=== PATIENT | male | born 1950 | race Caucasian/White ===

== ENCOUNTER → 2017-09-20 | Outpatient (CLI) | payer OTHER ==
[~2017-09-20] MED LIST: ACYCLOVIR 400400 MG PO; AMBIEN 10 MG TA10 MG PO; AMITRIPTYLINE H10 M3; AMITRIPTYLINE H25 M2 PO; AMITRIPTYLINE H50 M2 PO; AMLODIPINE-ATO1 EAC4 PO; ANAPROX PO; ATIVAN1 MG PO; B-121000 MCG PO; B12INJ IM; B12INJ SUBQ; BETADINE1 EACH TOP; CARAFATE 1 GM TA1 G1 PO; CARAFATE1 GM/10 ML PO; CARVEDILOL6.25 MG PO; CATAPRES0.1 MG PO; CEFAZOLIN; CELEXA 20 MG TA20 MG PO; CIPRO500 MG PO; CIPROFLOXACIN500 M3 PO; CLONIDINE0.1 PO; COSAMIN DS CAP1 EACH PO; DAILY MULTIPLE1 EAC2 PO; DAPTOMYCIN IV; ENDOCET 10-3251 EACH PO; FAMOTIDINE20 MG PO; FENOFIBRATE48 MG PO; FERRO-TIME325 MG PO; FLOMAX PO; GABAPENTIN100 MG PO; GLUCOPHAGE XR500 MG PO; GLUCOPHAGE500 MG PO; GLUCOSAMINE &1 EACH PO; HYDROCODON-ACE1 EAC7 PO; HYDROCODONE-AP1 EAC2 PO; HYDROXYZINE HCL25 M1 PO; IRON IV; IRON PO; IRON325 PO; LISINOPRIL-HCT1 EAC2 PO; LORAZEPAM 0.50.5 MG PO; LORTAB 7.5/5001 TA3 PO; MACROBID 100 M100 M1 PO; MELATONIN3 MG PO; METANX CAPSULE1 EACH PO; METANX TABLET1 EAC1 PO; METHADONE HCL5 MG PO; MIRALAX RECTAL; MIRALAX17 GM PO; MS CONTIN15 MG PO; MULTIVITAMINS PO; NAPROSYN500 MG; NAPROSYN500 MG PO; NEURONTIN 300300 M1 PO; NIASPAN 500 MG500 M1 PO; NORVASC10 MG PO; ONDANSETRON HCL4 M2 PO; OXYCODONE HCL15 MG PO; PANTOPRAZOLE SO40 MG PO; PERCOCET 10-321 EACH; PERCOCET 5-3251 EACH PO; POVIDINE 10% OI28 G1 TOP; PREDNISONE 20 M20 MG PO; PROBIOTIC1 EAC1 PO; PROTONIX40 M1 PO; RELAX & SLEEP1 EACH PO; REQUIP XL2 MG PO; RIFAMPIN 300 M300 M1 PO; ROCEPHIN 11 GM/1001 IV; SIMETHICON CHEW80 M1 PO; TAMSULOSIN HCL0.4 M1; TAMSULOSIN HCL0.4 MG PO; TRAZODONE HCL100 MG PO; TRAZODONE HCL50 MG PO; VENOFER100 MG/52 IV; VITAMIN B 12; XANAX 0.5 MG0.5 MG PO; [UNRECOGNIZED DRUG - OTHER]; [UNRECOGNIZED DRUG - OTHER] PO; [UNRECOGNIZED DRUG - OTHER] PO; tramadol
== END ==
LOC: M.WC 06:27
DX: E11.621 Type 2 diabetes mellitus with foot ulcer (principal); L97.521 Non-pressure chronic ulcer of other part of left foot limited to breakdown of skin; E11.40 Type 2 diabetes mellitus with diabetic neuropathy, unspecified; E78.5 Hyperlipidemia, unspecified; I10 Essential (primary) hypertension; M19.90 Unspecified osteoarthritis, unspecified site; G89.29 Other chronic pain; Z89.412 Acquired absence of left great toe

== ENCOUNTER → 2017-09-27 | Outpatient (CLI) | payer OTHER | LOC: M.WC 01:07 | DX: E11.621 Type 2 diabetes mellitus with foot ulcer (principal); L97.521 Non-pressure chronic ulcer of other part of left foot limited to breakdown of skin; T25.291A Burn of second degree of multiple sites of right ankle and foot, initial encounter; T31.0 Burns involving less than 10% of body surface; G89.29 Other chronic pain; E78.5 Hyperlipidemia, unspecified; I10 Essential (primary) hypertension; E11.40 Type 2 diabetes mellitus with diabetic neuropathy, unspecified; E11.69 Type 2 diabetes mellitus with other specified complication; M86.9 Osteomyelitis, unspecified; X08.8XXA Exposure to other specified smoke, fire and flames, initial encounter; Y92.89 Other specified places as the place of occurrence of the external cause; Y99.8 Other external cause status; Y93.89 Activity, other specified ==

== ENCOUNTER → 2017-10-04 | Outpatient (CLI) | payer OTHER | LOC: M.WC 00:51 | DX: E11.621 Type 2 diabetes mellitus with foot ulcer (principal); L97.521 Non-pressure chronic ulcer of other part of left foot limited to breakdown of skin; E11.622 Type 2 diabetes mellitus with other skin ulcer; L97.811 Non-pressure chronic ulcer of other part of right lower leg limited to breakdown of skin; E11.69 Type 2 diabetes mellitus with other specified complication; M86.8X7 Other osteomyelitis, ankle and foot; E11.40 Type 2 diabetes mellitus with diabetic neuropathy, unspecified; I10 Essential (primary) hypertension; E78.5 Hyperlipidemia, unspecified; G89.29 Other chronic pain; M19.90 Unspecified osteoarthritis, unspecified site; Z89.412 Acquired absence of left great toe; Z89.422 Acquired absence of other left toe(s) ==

== ENCOUNTER → 2017-10-11 | Outpatient (CLI) | payer OTHER | LOC: M.WC 00:08 | DX: E11.621 Type 2 diabetes mellitus with foot ulcer (principal); L97.521 Non-pressure chronic ulcer of other part of left foot limited to breakdown of skin; T25.291D Burn of second degree of multiple sites of right ankle and foot, subsequent encounter; G89.29 Other chronic pain; E11.69 Type 2 diabetes mellitus with other specified complication; M86.8X7 Other osteomyelitis, ankle and foot; M19.90 Unspecified osteoarthritis, unspecified site; E78.5 Hyperlipidemia, unspecified; I10 Essential (primary) hypertension; E11.40 Type 2 diabetes mellitus with diabetic neuropathy, unspecified; Z89.412 Acquired absence of left great toe; X08.8XXD Exposure to other specified smoke, fire and flames, subsequent encounter ==

== ENCOUNTER → 2017-10-18 | Outpatient (CLI) | payer OTHER | LOC: M.WC 00:53 | DX: E11.621 Type 2 diabetes mellitus with foot ulcer (principal); L97.511 Non-pressure chronic ulcer of other part of right foot limited to breakdown of skin; L97.521 Non-pressure chronic ulcer of other part of left foot limited to breakdown of skin; L89.892 Pressure ulcer of other site, stage 2; E11.69 Type 2 diabetes mellitus with other specified complication; M86.8X7 Other osteomyelitis, ankle and foot; E11.40 Type 2 diabetes mellitus with diabetic neuropathy, unspecified; L84 Corns and callosities; I10 Essential (primary) hypertension; M19.90 Unspecified osteoarthritis, unspecified site; M89.48 Other hypertrophic osteoarthropathy, other site; G89.29 Other chronic pain; M79.671 Pain in right foot; E78.5 Hyperlipidemia, unspecified; Z89.412 Acquired absence of left great toe ==

== ENCOUNTER → 2017-10-25 | Outpatient (CLI) | payer OTHER | LOC: M.WC 01:05 | DX: E11.621 Type 2 diabetes mellitus with foot ulcer (principal); L97.521 Non-pressure chronic ulcer of other part of left foot limited to breakdown of skin; G89.29 Other chronic pain; E11.69 Type 2 diabetes mellitus with other specified complication; M86.8X7 Other osteomyelitis, ankle and foot; M19.90 Unspecified osteoarthritis, unspecified site; E78.5 Hyperlipidemia, unspecified; I10 Essential (primary) hypertension; E11.40 Type 2 diabetes mellitus with diabetic neuropathy, unspecified; Z89.412 Acquired absence of left great toe ==

== ENCOUNTER → 2017-11-01 | Outpatient (CLI) | payer OTHER | LOC: M.WC 00:11 | DX: E11.621 Type 2 diabetes mellitus with foot ulcer (principal); L97.521 Non-pressure chronic ulcer of other part of left foot limited to breakdown of skin; T25.211D Burn of second degree of right ankle, subsequent encounter; T31.0 Burns involving less than 10% of body surface; E11.69 Type 2 diabetes mellitus with other specified complication; M86.8X7 Other osteomyelitis, ankle and foot; E11.40 Type 2 diabetes mellitus with diabetic neuropathy, unspecified; E78.5 Hyperlipidemia, unspecified; I10 Essential (primary) hypertension; G89.29 Other chronic pain; M19.90 Unspecified osteoarthritis, unspecified site; M89.40 Other hypertrophic osteoarthropathy, unspecified site; Z89.412 Acquired absence of left great toe; X08.8XXD Exposure to other specified smoke, fire and flames, subsequent encounter ==

== ENCOUNTER 2018-01-25 08:24 | Inpatient (IN) | payer OTHER ==
[~2018-01-25] VITALS: Ht 172.7 cm; Wt 76.2 kg
[~2018-01-25 08:24] MED LIST changes: -B12INJ SUBQ; -BETADINE1 EACH TOP; -CARAFATE1 GM/10 ML PO; -FENOFIBRATE48 MG PO; -MELATONIN3 MG PO; -MIRALAX17 GM PO; -PROBIOTIC1 EAC1 PO; -PROTONIX40 M1 PO
[2018-01-25] MEDS ORDERED: PROBIOTIC1 EAC1 PO (10:04)
[2018-01-25] MEDS ORDERED: MELATONIN3 MG PO (10:05)
[2018-01-25] MEDS ORDERED: PROTONIX40 M1 PO (10:06)
[2018-01-25] MEDS ORDERED: BETADINE1 EACH TOP (10:07)
[2018-01-25] MEDS ORDERED: CARAFATE1 GM/10 ML PO (10:08)
[2018-01-25] MEDS ORDERED: FENOFIBRATE48 MG PO (10:11)
[2018-01-25] MEDS ORDERED: B12INJ SUBQ (10:13)
[2018-01-25] MEDS ORDERED: MIRALAX17 GM PO (10:17)
[2018-01-25 10:20] VITALS: BP 163/88
[2018-01-25 12:09] LABS: POTASSIUM 4.5 mmol/L (3.5-5.1)
[2018-01-25 12:10] LABS: ALBUMIN 1.7 g/dL (3.4-5.0); CALCIUM 8.3 mg/dL (8.5-10.1); CREATININE 1.1 mg/dL (0.6-1.3); TOTAL BILIRUBIN 0.3 mg/dL (<0.1-1.0); TOTAL PROTEIN 5.4 g/dL (6.4-8.2)
--- NOTE | 2018-01-25 14:45 | NUR ---
CONSULTED TO PLACE PICC FOR PT NEEDING WEB APPLICATIONS ARCHITECT ATB THERAPY. ORDER AND CONSENT NOTED. SPOKE WITH PT REGUARDING RISK/BENNIFET. VOICED UNDERSTANDING AND AGREED. BOTH UPPER ARMS ASSESSED WITH ULTRASOUND. LEFT BASILIC NOTED TO BE MOST PATENT. SINGLE LUMAN POWER PICC PLACED PER HOSPITAL POLICY. LINE TRIM AT 47CM AND ADVANCED TO 0CM EXTERNAL. TIP CONFIRMATION WITH SHERLOCK 3CG. LINE SECURED AND RELEASED FOR IMMEDIATE USE. PRIMARY NURSING AWARE.
[2018-01-25 16:00] VITALS: BP 181/98
[2018-01-25 16:56] LABS: ABSOLUTE EOSINOPHILS 0.3 thou/uL (0.0-0.7); ABSOLUTE LYMPHOCYTES 1.7 thou/uL (0.8-5.3); ABSOLUTE MONOCYTES 0.6 thou/uL (0.0-1.2); ABSOLUTE NEUTROPHILS 3.6 thou/uL (1.6-8.1); BASOPHILS 0.7 %; EOSINOPHILS 4.2 %; HEMATOCRIT 24.9 % (42.0-52.0); HEMOGLOBIN 7.9 gm/dL (14.0-18.0); LYMPHOCYTES 26.9 %; MCH 23.9 pg (26.0-34.0); MCHC 31.9 g/dL (28.0-37.0); MCV 74.9 fL (80.0-100.0); MONOCYTES 10.1 %; MPV 6.8 fl. (7.2-11.1); NUCLEATED RBCS 0 /100WBC; PLATELET COUNT* 292 thou/uL (150-400); POLYS 58.1 %; RBC 3.32 mil/uL (4.50-6.00); RDW-CV 16.7 % (10.5-14.5); WBC 6.3 thou/uL (4.0-11.0)
--- NOTE | 2018-01-25 17:34 | NUR ---
PATIENT ARRIVED THIS A DIRECT ADMIT FROM WOUND CARE CENTER. HISTORY, ASSESSMENT AND VITALS COMPLETED AND DOCUMENTED. PATIENT IS CURRENTLY RESTING IN BED. PATIENT IS UP STANDBY ASSIST. PATIENT HAS COMPLAINTS OF PAIN TO HANDS, TREATED ADEQUATELY WITH MEDICATION. PATIENT HAS WOUNDS TO BILATERAL FEET. PATIENT HAD PICC LINE PLACED AT BEDSIDE THIS AFTERNOON WITHOUT INCIDENT. PATIENT DENIES ANY NEEDS AT THIS TIME. CALL LIGHT WITHIN REACH. WILL CONTINUE TO MONITOR.
[2018-01-25 20:15] VITALS: BP 171/94
[2018-01-26 00:23] VITALS: BP 157/83
[2018-01-26 04:22] LABS: ABSOLUTE EOSINOPHILS 0.3 thou/uL (0.0-0.7); ABSOLUTE MONOCYTES 0.7 thou/uL (0.0-1.2); ABSOLUTE NEUTROPHILS 2.7 thou/uL (1.6-8.1); BASOPHILS 0.5 %; EOSINOPHILS 5.5 %; HEMATOCRIT 25.4 % (42.0-52.0); LYMPHOCYTES 35.1 %; MCH 23.9 pg (26.0-34.0); MCHC 31.7 g/dL (28.0-37.0); MCV 75.7 fL (80.0-100.0); MONOCYTES 11.4 %; MPV 7.1 fl. (7.2-11.1); NUCLEATED RBCS 0 /100WBC; PLATELET COUNT* 298 thou/uL (150-400); POLYS 47.5 %; RBC 3.36 mil/uL (4.50-6.00); WBC 5.8 thou/uL (4.0-11.0)
[2018-01-26 04:27] LABS: CALCIUM 7.9 mg/dL (8.5-10.1); CREATININE 1.1 mg/dL (0.6-1.3); POTASSIUM 4.2 mmol/L (3.5-5.1)
--- NOTE | 2018-01-26 05:45 | NUR ---
PT SLEPT ON AND OFF THIS SHIFT. ASSESSMENT DOCUMENTED. MEDS GIVEN PER E-MAR. PICC PATENT. PAIN MEDS GIVEN PER PATIENT REQUEST. WILL CONTINUE WITH PLAN OF CARE.
[2018-01-26 08:50] VITALS: BP 177/94
--- NOTE | 2018-01-26 11:03 | NUR ---
INITIAL ASSESSMENT: Pt evaluated for d/c planning needs. Reviewed chart and spoke with nurse and pt. Pt is alert and oriented. Pt lives at home with and was independent with ADl's prior to admission. Pt states he does not use any DME. Pt has had [facility] in the past. Pt plans on returning home on d/c from hospital. Will remain available to assist as needed.
--- NOTE | 2018-01-26 12:04 | CON ---
[facility] [address] [place] [address] CONSULTATION Name: PASCUAL REED Room: [address] ADM IN M.R.#: [id number] Admission: 01/25/18 Attend Phys: Philip Guillory MD Discharge: Date of : 50 Report #: [id number] THIS REPORT FOR: //name// CC: Philip Bernstein DATE OF SERVICE: 01/25/2018 ATTENDING PHYSICIAN: Philip Guillory M.D. REASON FOR EVALUATION: Right great toe inflammatory eruption, likely a component of skin and soft tissue infection, can entirely exclude deeper infection such as osteomyelitis. HISTORY OF PRESENT ILLNESS: Chart reviewed, patient examined. This is a 67-year-old well known to myself, although I am seeing him for a number of years. There was some concern about diabetes; however, apparently more recent history indicates it is not felt to be the case. He was recently hospitalized with pancreatitis. He has ongoing issues with peripheral neuropathy, has previous toe amputations, had chronic ulceration involving the distal plantar aspect of the second toe as well as more recent breakdown with ulceration involving the plantar aspect overlying the first metatarsophalangeal joint, right side. Over the course of last 12-24 hours, had increasing inflammation associated with the site. With increasing temperature, it is not clear he has had systemic illness. Denies any fevers or chills. Due to concerns was evaluated by wound care center with Dr. aHrry who recommended admission did undergo imaging studies. The feet noted the prior left first digit amputation and second phalanx amputation, old fracture deformity on the left, soft tissue swelling on the right, although no osseous changes to raise a suspicion for osteomyelitis. Denies any significant pulmonary or gastrointestinal complaints. He is not encephalopathic. ALLERGIES: Unknown and are available in the chart. PAST MEDICAL HISTORY: As noted above, history of Crohn's disease from previous intestinal resection, appendectomy, cholecystectomy, hypertension, recent pancreatitis, peripheral neuropathy. SOCIAL HISTORY: Nonsmoker, no ethanol. FAMILY HISTORY: Noncontributory. REVIEW OF SYSTEMS: As above. PHYSICAL EXAMINATION: [place] [address] CONSULTATION Name: PASCUAL REED Room: [address] IN [facility]#: [id number] Admission: 01/25/18 Attend Phys: Philip Guillory MD Discharge: Date of : 50 Report #: [id number] GENERAL: He is alert, cooperative, appropriate. He has certainly lost weight since previous interaction, appears mildly undernourished. VITAL SIGNS: Temperature 98.4, pulse 113, respirations 18, blood pressure 163/88. SKIN: Warm, dry, no rashes. HEENT: Unremarkable. NECK: Supple. LUNGS: Otherwise, clear breath sounds. HEART: Regular, tachycardic. I do not appreciate a murmur. ABDOMEN: Soft. There is no apparent tenderness, no peritoneal signs. EXTREMITIES: Bilateral feet were evaluated. He has previous amputations on the left. There is some ulceration of the distal third toe plantar aspect, some mild degree of inflammation right side. There is moderate to marked inflammation noted, it extends on the dorsum of the foot. There is a plantar ulcer that is warm to touch, erythrodermic type eruption. GENITOURINARY: Deferred. RECTAL: Deferred. LABORATORY DATA: Pending. ASSESSMENT AND PLAN: Inflammatory process involving the right great toe empiric treatment. I think it is reasonable to go ahead and start vancomycin presuming he had staph or strep etiology at this point. Evaluation in progress whether he will need any sort of intervention, it is not clear at this point. We will follow expectantly. Did discuss with the patient's spouse. <ELECTRONICALLY SIGNED> By: Luis Meier MD 01/26/18 1204 1204 [id number] Meier MD /nt
--- NOTE | 2018-01-26 14:28 | NUR ---
Nutrition: Pt was seen for Consult for wound healing. Pt denied DM. H/o SIRS, cellulitis, recent pancreatitis. Pt stated he does take a MVI. He was eating good lunch at time of visit. Alb 1.7, prealb 12.3, BG ok. Pt agreed to try Luis A Lucas for wound healing - RD ordered. We briefly discussed importance of focusing on protein during meal times. Pt has a PICC. Wounds on bilat feet. Wt 168#. Increased nutrient needs R/T wound healing AEB wounds on bilat feet. Continue MVI, Luis A orange b.i.d., >75% of meals consumed. Mild risk.
--- NOTE | 2018-01-26 15:45 | NUR ---
WOUND NURSE: PATIENT SEEN TODAY FOR WOUND ASSESSMENT AND INTERVENTION WHICH WAS DONE. RIGHT FIRST METATARSAL: 2.0 X 1.7 X 0.7 CM. PRESENTS WITH EARLY RED GRANULATION TISSUE IN THE WOUND BED, MODERATE AMOUNT OF SEROUSANGUINOUS DRAINAGE, PERIWOUND REDNESS AND WARMTH IS APPARENT. DECREASED PERIPHERAL EDEMA COMPARED TO YESTERDAY WHEN SEEN IN THE WOUND CENTER, RIGHT GREAT TOE DORSAL ASPECT: 0.6 X 0.7 X 0.1 CM. PRESENTS A SHALLOW LESION CONTAINING A SMALL AMOUNT OF SEROUSANGUINOUS DRAIANGE, THIN YELLOW CRUSTS ALONG THE EDGES, THIN LAYER OF PINK TO RED GRANULATION TISSUE. THERE IS SLIGHT PERIWOUND REDNESS. LEFT FOURTH TOE: 0.4 X 0.7 X 0.3 CM PRESENTS WITH APPROX 25% SLOUGH, 75% GRANULATION TISSUE IN THE WOUND BED. SMALL SEROUSANGUINOUS DRAINAGE. SIGNIFICANT PERIWOUND REDNESS AND SWELLING. LEFT FIFTH METATARSAL: 0.3 X 0.4 X 0.2 CM. PRESENTS WITH THIN LAYER OF YELLOW SLOUGH COVERING THE WOUND BED. SMALL AMOUNT OF SEROUS DRAINAGE NOTED. SLIGHT PERIWOUND REDNESS NOTED. ALL WOUNDS CLEANSED WITH SOAP AND WATER, RINSED WITH WATER, THEN PATTED DRY. APPLIED AQUACEL AG UNDER ABD (CUT TO FIT) TO EACH WOUND BED, THEN WRAPPED WITH KERLEX ROLL GAUZE AND SECURED WITH TAPE. THIS WAS TOLERATED WELL BY THE PATIENT. INSTRUCTED ON MEASURES TO PROMOTE HEALING AND PREVENT FURTHER COMPLICATION WITH GOOD UNDERSTANDING VOICED BY THE PATIENT.
[2018-01-26 16:00] VITALS: BP 152/85
--- NOTE | 2018-01-26 18:54 | NUR ---
PATIENT RESTING IN BED. PATIENT UP AD SO IN ROOM. PATIENT HAS COMPLAINTS OF PAIN TO HANDS AND BACK TREATED ADEQUATELY WITH MEDICATION. PATIENT DENIES ANY PAIN TO FEET. PATIENT SEEN BY WOUND CARE NURSE THIS AM FOR DRESSING CHANGE TO FEET. PATIENT HAS GOOD APPETITE. PATIENT DENIES ANY NEEDS AT THIS TIME. CALL LIGHT WITHIN REACH. WILL CONTINUE TO MONITOR.
[2018-01-26 20:00] VITALS: BP 166/80
--- NOTE | 2018-01-27 05:33 | NUR ---
PT SLEPT MOST OF SHIFT. ASSESSMENT DOCUMENTED. MEDS GIVEN PER E-MAR. PAIN MEDS GIVEN PER PATIENT REQUEST FOR HAND PAIN. PICC PATENT. DRESSING ON BILAT FEET C/D/I. WILL CONTINUE WITH PLAN OF CARE.
[2018-01-27 09:35] VITALS: BP 176/92
--- NOTE | 2018-01-27 15:52 | NUR ---
WOUND NURSE: PATIENT HAD MANAGED TO PARTIALLY TEAR OFF HIS DRESSING ON THE RIGHT FOOT, SO REMOVED AND REAPPLIED DRESSING TO BILATERAL FOOT WOUNDS. CLEANSED WITH SOAP AND WATER, RINSED WITH WATER, THEN PATTED DRY. APPLIED SKIN PREP TO INTACT PERIWOUND TISSUE, THEN APPLIED AQUACEL AG UNDER ABD (CUT TO FIT) TO EACH WOUND. WRAPPED WITH KERLEX ROLL GAUZE, THEN SECURED WITH PAPER TAPE. NO CHANGE IDENTIFIED IN WOUNDS COMPARED TO YESTERDAY. PAIENT REINSTRUCTED ON MEASURES TO PROMOTE HEALING AND PREVENT FUTHER BREAKDOWN. PATIENT STATED HE UNDERSTOOD.
[2018-01-27 16:10] VITALS: BP 161/86
--- NOTE | 2018-01-27 17:36 | NUR ---
PATIENT IS ALERT AND ORIENTED TODAY. VITAL SIGNS STABLE ON ROOM AIR. SOME COMPLAINTS OF PAIN THAT IS CONTROLLED WITH ORAL PAIN MEDICATIONS. DRESSING CHANGED TODAY BY WOUND NURSE DUE TO BEING SATURATED THIS AFTERNOON. UP AD SO IN ROOM. FAMILY HAS BEEN AT BEDSIDE TODAY. PICC LINE FLUSHES WELL AND ANTIBIOTICS RUN FINE UNABLE TO DRAW BLOOD FROM LINE THOUGH. CALL LIGHT IS IN REACH, WILL CONTINUE TO MONITOR.
[2018-01-28] VITALS (7 sets, daily range): BP systolic 145–183; BP diastolic 67–100
[2018-01-28 04:56] LABS: ABSOLUTE EOSINOPHILS 0.2 thou/uL (0.0-0.7); ABSOLUTE LYMPHOCYTES 1.7 thou/uL (0.8-5.3); ABSOLUTE MONOCYTES 0.6 thou/uL (0.0-1.2); BASOPHILS 0.5 %; EOSINOPHILS 4.3 %; HEMATOCRIT 25.5 % (42.0-52.0); HEMOGLOBIN 8.3 gm/dL (14.0-18.0); MCH 24.4 pg (26.0-34.0); MCHC 32.4 g/dL (28.0-37.0); MCV 75.3 fL (80.0-100.0); MONOCYTES 10.7 %; MPV 7.3 fl. (7.2-11.1); NUCLEATED RBCS 0 /100WBC; PLATELET COUNT* 276 thou/uL (150-400); POLYS 53.5 %; RBC 3.39 mil/uL (4.50-6.00); RDW-CV 16.6 % (10.5-14.5); WBC 5.6 thou/uL (4.0-11.0)
[2018-01-28 05:26] LABS: ALBUMIN 1.3 g/dL (3.4-5.0); CALCIUM 7.8 mg/dL (8.5-10.1); CREATININE 1.2 mg/dL (0.6-1.3); POTASSIUM 3.8 mmol/L (3.5-5.1); TOTAL BILIRUBIN 0.2 mg/dL (<0.1-1.0); TOTAL PROTEIN 4.8 g/dL (6.4-8.2)
--- NOTE | 2018-01-28 05:48 | NUR ---
PATIENT SLEPT WELL DURING THIS SHIFT. PT UP TO BATHROOM WITH SLOW STEADY GAIT. PT WITH DRESSINGS ON RT/LT FEET. DSGS' C/D/I AT THIS TIME. PT HAS MINIMAL SWELLING OF BOTH FEET. PT GIVEN OXY IR 15MG AND MS CONTIN 15MG ORDERED. PT WITH SINGLE LUMAN PICC IN UPPER LT ARM; ABLE TO DRAW/FLUSH WITH NO RESISTANCE. PT DENIES NEEDS AT THIS TIME. FREQUENTLY USED ITEMS AND CALL LIGHT WITHIN REACH. SIDERAILS UPX2. WILL CONTINUE TO MONITOR.
--- NOTE | 2018-01-28 17:29 | NUR ---
PATIENT HAS BEEN ALERT AND ORIENTED TODAY VERY PLEASANT. UP AD SO IN ROOM. PATIENT HAS BEEN HYPERTENSIVE SO NEW MEDICATIONS ORDERED AND GIVEN. DRESSING ON FEET CHANGED TODAY. COMPLAINTS OF PAIN IN HANDS TODAY THAT IS SOMEWHAT CONTROLLED WITH ORAL PAIN MEDCATIONS. PICC IN LEFT UPPER ARM WORKS WELL FOR INFUSION. CALL LIGHT IS IN REACH WILL CONTINUE TO MONITOR.
[2018-01-29 05:11] LABS: ABSOLUTE EOSINOPHILS 0.2 thou/uL (0.0-0.7); ABSOLUTE LYMPHOCYTES 1.3 thou/uL (0.8-5.3); ABSOLUTE MONOCYTES 0.5 thou/uL (0.0-1.2); BASOPHILS 0.5 %; EOSINOPHILS 3.9 %; HEMOGLOBIN 7.6 gm/dL (14.0-18.0); LYMPHOCYTES 25.9 %; MCH 23.9 pg (26.0-34.0); MCHC 31.8 g/dL (28.0-37.0); MCV 75.1 fL (80.0-100.0); MONOCYTES 10.7 %; MPV 7.2 fl. (7.2-11.1); NUCLEATED RBCS 0 /100WBC; PLATELET COUNT* 288 thou/uL (150-400); WBC 5.1 thou/uL (4.0-11.0)
--- NOTE | 2018-01-29 05:11 | NUR ---
PATIENT SLEPT MOST OF THE NIGHT. IV VANC WAS GIVEN ORDERED. DRESSING TO BILATERAL FEET REMAIN INTACT. PATIENT WAS GIVEN PRN PAIN MEDICINE TWICE. WILL CONTINUE TO MONITOR.
[2018-01-29 05:32] LABS: ALBUMIN 1.2 g/dL (3.4-5.0); CALCIUM 7.8 mg/dL (8.5-10.1); CREATININE 1.3 mg/dL (0.6-1.3); POTASSIUM 3.9 mmol/L (3.5-5.1); TOTAL BILIRUBIN 0.2 mg/dL (<0.1-1.0); TOTAL PROTEIN 4.6 g/dL (6.4-8.2)
[2018-01-29 05:47] LABS: PREALBUMIN 13.2 mg/dL (18.0-35.7)
[2018-01-29 08:15] VITALS: BP 160/98
[2018-01-29 16:06] VITALS: BP 160/94
--- NOTE | 2018-01-29 18:22 | NUR ---
PATIENT HAS BEEN ALERT AND ORIENTED TODAY VERY PLEASANT. VITAL SIGNS STABLE ON ROOM AIR, BLOOD PRESSURE ELEVATED, MEDICATIONS ADJUSTED BY PROVIDER. PICC LINE IN LEFT UPPER ARM WORKS WELL. SOME PAIN TODAY THAT IS CONTROLLED SOMEWHAT WITH ORAL PAIN MEDICATIONS, PAIN IS CHRONIC. FAMILY HAS BEEN AT BEDSIDE MOST OF THE DAY, APPETITE HAS BEEN GOOD TODAY. CALL LIGHT IS IN REACH, WILL CONTINUE TO MONITOR.
[2018-01-29 20:30] VITALS: BP 152/76
--- NOTE | 2018-01-30 06:04 | NUR ---
PATIENT SLEPT MOST OF THE NIGHT. PATIENT WAS GIVEN PAIN MEDICINE TWICE THIS SHIFT. IV VANC WAS GIVEN ORDERED. DRESSINGS TO BLIATERAL FETT REAMIN IN PLACE. WILL CONTINUE TO MONITOR.
[2018-01-30 08:15] VITALS: BP 168/80
[2018-01-30 16:20] VITALS: BP 161/88
--- NOTE | 2018-01-30 17:19 | NUR ---
PATIENT ALERT AND ORIENTED X 4. VITAL SIGNS STABLE ON ROOM AIR. UP INDEPENDENTLY IN ROOM. IV PATENT AND SALINE LOCKED. VANCOMYCIN GIVEN PER JUN. PAIN BEING MANAGED WITH PO MEDICATION. DENIES NAUSEA. DRESSINGS TO BILATERAL FOOT WOUNDS ARE CLEAN/DRY/INTACT. HOURLY ROUNDS MAINTAINED THROUGHOUT THE SHIFT. CALL LIGHT WITHIN REACH. NURSING WILL CONTINUE TO MONITOR.
[2018-01-30 20:30] VITALS: BP 168/91
--- NOTE | 2018-01-31 06:14 | NUR ---
PATIENTS SLEPT MOST OF THE NIGHT. IV VANC WAS GIVEN ORDERED. PATIENT REFUSING TO TAKE PO MINOCYCLINE STATING IT IS MAKING HIS STOMACH UPSET AND VERY NAUSEATED. 21OO DOSE WAS HELD AND ZOFRAN WAS GIVEN WITH GOOD RELIEF. PATIENT IS POSSIBLY GOING HOME TODAY. WILL CONTINUE TO MONITOR.
[2018-01-31 08:31] VITALS: BP 167/94
[2018-01-31 12:00] VITALS: BP 122/80
--- NOTE | 2018-01-31 17:59 | NUR ---
PATIENT HAS BEEN ALERT AND ORIENTED TODAY, VERY PLEASANT. UP AD SO IN ROOM, WENT FOR MRI TODAY. APPETITE IS FAIR, STOPPED ALL ANTIBIOTICS TODAY HOPING THAT WILL IMPROVE APPETITE AND TASTE. PICC LINE IN PLACE DRAWS BLOOD FINE. SOME COMPLAINTS OF PAIN THAT IS CHRONIC. VITAL SIGNS HAVE BEEN STABLE ON ROOM AIR. FAMILY HAS BEEN AT BEDSIDE MOST OF THE DAY. CALL LIGHT IS IN REACH, WILL CONTINUE TO MONITOR,
[2018-02-01] VITALS (11 sets, daily range): BP systolic 151–160; BP diastolic 79–82
--- NOTE | 2018-02-01 05:02 | NUR ---
PATIENT SLEPT WELL DURING THIS SHIFT. PT UP TO BATHROOM WITH SLOW STEADY GAIT. PT WITH BILATERAL FOOT WOUNDS; DSGS C/D/I. PT REQUESTED PAIN MEDICATION X2 DURING THIS SHIFT. PT WITH PICC LINE IN LT UPPER ARM; ABLE TO DRAW/FLUSH WITH NO RESISTANCE. PT DENIES NEEDS AT THIS TIME. FREQUENTLY USED ITEMS AND CALL LIGHT WITHIN REACH. SIDERAILS UPX2. WILL CONTINUE TO MONITOR.
[2018-02-01 06:21] LABS: ABSOLUTE BASOPHILS 0.1 thou/uL (0.0-0.2); ABSOLUTE EOSINOPHILS 0.3 thou/uL (0.0-0.7); ABSOLUTE LYMPHOCYTES 1.6 thou/uL (0.8-5.3); ABSOLUTE MONOCYTES 0.8 thou/uL (0.0-1.2); ABSOLUTE NEUTROPHILS 4.9 thou/uL (1.6-8.1); BASOPHILS 1.4 %; EOSINOPHILS 3.3 %; HEMATOCRIT 24.1 % (42.0-52.0); HEMOGLOBIN 7.7 gm/dL (14.0-18.0); LYMPHOCYTES 20.3 %; MCHC 31.9 g/dL (28.0-37.0); MCV 75.1 fL (80.0-100.0); MONOCYTES 10.5 %; MPV 7.5 fl. (7.2-11.1); NUCLEATED RBCS 0 /100WBC; PLATELET COUNT* 267 thou/uL (150-400); POLYS 64.5 %; RDW-CV 16.7 % (10.5-14.5); WBC 7.6 thou/uL (4.0-11.0)
[2018-02-01 06:37] LABS: ALBUMIN 1.3 g/dL (3.4-5.0); CALCIUM 8.1 mg/dL (8.5-10.1); POTASSIUM 4.4 mmol/L (3.5-5.1); TOTAL BILIRUBIN 0.2 mg/dL (<0.1-1.0)
--- NOTE | 2018-02-01 12:24 | NUR ---
SPOKE WITH PT.AND ABOUT HOSPITAL STAY. PT. SAID THE TOLD HIM INSURANCE WAS POSSIBLY DENYING HIS STAY. HE WANTED TO KNOW BEFORE HE HAD MRI'S, THAT THE HAS ORDERED. EXPLAINED INSURANCE HAS DENIED HIS STAY BUT CM FEELS IT WILL BE OVERTURNED. TO DO A PEER TO PEER REVIEW. THAT BEING SAID WE CANNOT 100% GUARANTEE THAT IT WILL BE OVERTURNED. HE WOULD THEN BE RESPONSIBLE FOR COPAYS ON TESTS IF HE HAD THEM OUTPT. HE SAID WELL I HAVE TO HAVE THEM TO SEE IF ANYTHING IS GOING ON, SO I WILL JUST TAKE MY CHANCES. ANDRESSA CONTRERAS IN ROOM AND WILL ASK FOR SOME SEDATION FOR MRI, SD PT.IS CLAUSTROPHOBIC.
[2018-02-01] MEDS ORDERED: IRON325 PO (16:43)
--- NOTE | 2018-02-01 18:13 | NUR ---
ALERT AND ORIENTED X4. UP STAND BY ASSIST IN ROOM TODAY AFTER PATIENT NOTIFIED PHYSICIAN THIS AM OF A FALL THAT HE HAD HAD OVERNIGHT. PATIENT DID NOT REPORT FALL TO NURSING AND WAS UP AD SO IN ROOM PRIOR TO THIS EVENT. PATIENT WAS EDUCATED TO CALL FOR ASSISTANCE AND BED ALARM ON THROUGHOUT SHIFT. HOSPITALIST WAS NOTIFIED AND ORDERS WERE RECIEVED. PATIENT RECEIVED DISCHARGE INSTRUCTIONS AND NEW MEDICATION INFORMATION. PICC LINE DC'D. DISCHARGE PICTURES HAVE BEEN TAKEN. DRESSINGS BILATERALLY HAVE BEEN CHANGED TWICE THIS SHIFT DUE TO NEED FOR DISCHARGE PICTURES, C/D/I. VSS ON ROOM AIR. HOURLY ROUNDS HAVE BEEN MAINTAINED THROUGHOUT SHIFT. PATIENT LEFT UNIT AT 1810. VSS ON ROOM AIR. HOURLY ROUNDS HAVE BEEN MAINTAINED THROUGHOUT SHIFT. LEFT WITH VIA CAR.
[2018-02-01 23:09] LABS: IgA 395 mg/dL (61-437); IgG 1113 mg/dL (700-1600); IgM 41 mg/dL (20-172)
[2018-02-03 14:09] LABS: GLOBULIN TOTAL 2.7 g/dL (2.2-3.9); M-SPIKE Not Observed g/dL (Not Observed)
--- NOTE | 2018-02-04 19:14 | CON ---
[address] [address] CONSULTATION Name: PASCUAL REED Room: [address] IN M.R.#: [id number] Admission: 01/25/18 Attend Phys: Philip Guillory MD Discharge: 02/01/18 Date of : 50 Report #: [id number] THIS REPORT FOR: //name// CC: Philip Bernstein DATE OF SERVICE: 02/01/2018 HISTORY OF PRESENT ILLNESS: This is a 67-year-old male patient who was evaluated by me for an episode which looks like drop attacks. The patient will be typically walking and he will notice that his knees will try to buckle. He has fallen down, but according to him, he does not lose consciousness. There is no tonic-clonic activity associated with it. He had 3 episodes and in all these 3 episodes, he was upright. He does have a history of . His blood pressure fluctuates. The lowest it has been is 120 systolic, but here, it has been fairly maintained in the high range and there is no documented hypotension during this hospitalization. REVIEW OF SYSTEMS: Extensive. The patient was discussed with the nurses and the patient was discussed with Dr. Guillory. This patient has a history of neuropathy. He indicates it is about 6 years' duration. He is not a diabetic. It is not clear how much workup he had, but he indicates that no etiology for the patient's neuropathy was found. He also developed cellulitis. He has developed problems with the toes even in the past. He is admitted again with cellulitis. He has a history of pancreatitis and apparently no cause has been found. There is some question of diabetes in the computer, but he tells me he is not a diabetic. He is not very happy. He wants to go home. He does not want many testing to be done. The record also indicate he was admitted with constitutional symptoms at one time. He had a prior history of a digit amputation. I carried out the 14-point review of system and this was the patient's relevant 14-point review of system. PAST MEDICAL HISTORY: Positive for what he has been diagnosed with neuropathy. FAMILY HISTORY: Unremarkable. 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 PHYSICAL EXAMINATION: Indicate he is alert, he is responsive, he is oriented, he wants to go home. His speech, concentration, fund of knowledge and memory is at his baseline. Cranial nerve examination 2-12 looks unremarkable. His neuromuscular examination is difficult because he has bandages on both feet, but he said he has no sensation there. His strength [place] [address] CONSULTATION Name: PASCUAL REED Room: [address] IN [facility].#: [id number] Admission: 01/25/18 Attend Phys: Phiilp Guillory MD Discharge: 02/01/18 Date of : 50 Report #: [id number] has amputation there. His tone is preserved. He has no reflexes in the lower extremities. His fundus could not be visualized. There is no meningeal sign. He is a reasonably well-developed individual. He does not have any dysmorphic features of eyes, ears and face. His vision and hearing looks adequate. He has no thyroid mass. His cardiac and respiratory examination is unremarkable. He does not appear to have any rhonchi on either side. I cannot tell about the pulses in the lower extremities because he has bandages there. He does not appear to have any edema, cyanosis or jaundice. His last blood pressure was 160/82, pulse was 78, temperature is 98.9. LABORATORY DATA: Indicate that he is anemic with a hemoglobin of 7.3, but his GFR is also only 33. They did check his TSH and vitamin B12 level and they look unremarkable. IMPRESSION: It is not clear what the etiology of the patient's symptom is. He may be having drop attacks. We need to check his blood pressure when it happens, but the patient unfortunately underplays his symptom and did not even tell anybody about that. For the drop attack, I will suggest doing an MRI of the brain and EEG and checking his blood pressure when the symptoms occur. He really wants to go home. He did not want to do many of the testing. I did talk with him to at least considering MRI and MRA and an EEG in this patient. He wanted to talk to pillowcase cutter and I will put a consult for them. I think this patient need an inpatient and outpatient workup, but I do not know how much we can talk him into doing that. RECOMMENDATIONS: 1. MRI of the brain and MRA if the patient allows that. 2. Check an EEG. 3. He will need workup for neuropathy, but that needs to be done as an outpatient. I will send an immunofixation electrophoresis, but rest of it need to be done as an outpatient. Thank you very much for this referral. The patient was discussed with the nurses as well as Dr. Guillory. <ELECTRONICALLY SIGNED> By: Konstantin Stoner MD 02/04/18 1914 1210 1410MD melony Hook
--- NOTE | 2018-02-04 19:14 | EEG ---
[address] [address] EEG STUDY REPORT Name: PASCUAL REED Room: [address] IN M.R.#: [id number] Admission: 01/25/18 Attend Phys: Philip Guillory MD Discharge: 02/01/18 Date of : 50 Report #: [id number] THIS REPORT FOR: //name// CC: [facility] DATE OF SERVICE: 02/01/2018 This patient is being evaluated for falling and he had episodes of drop attacks. The background activity in this patient's EEG is difficult to determine because the patient is sleeping most of the time. The background activity appeared to be about 8 Hz and 30 microvolt. The EEG demonstrates bilateral slowing and vertex sharp waves. Most of the record was obtained when the patient was asleep. Photic stimulation is unremarkable. Throughout the record, no active epileptiform activity was noticed. IMPRESSION: This patient's EEG is slow, which is probably because of sleep, but clinical correlation is recommended. No active epileptiform activity was noticed during this record. Thank you very much for this referral. <ELECTRONICALLY SIGNED> By: Konstantin Stoner MD 02/04/18 1914 1635 1715Parsaige Stoner MD /nt
--- NOTE | 2018-02-08 14:01 | CON ---
[address] [address] CONSULTATION Name: PASCUAL REED Room: [address] IN M.R.#: [id number] Admission: 01/25/18 Attend Phys: Philip Guillory MD Discharge: 02/01/18 Date of : 50 Report #: [id number] THIS REPORT FOR: //name// CC: [facility] DATE OF SERVICE: 02/01/2018 REQUESTING PHYSICIAN: Philip Guillory MD REASON FOR CONSULTATION: Anemia. HISTORY OF PRESENT ILLNESS: This is unfortunate 67-year-old man with multiple medical problems including chronic wounds, diabetes, chronic kidney disease, who was admitted to the hospital for nonhealing wounds. He was found to have iron deficiency anemia. He was given intravenous iron. Hematology consult is requested. The patient is a very poor historian. He is not cooperative, giving me a history. He states that he has had IV iron in the past several years ago. He believes he is taking vitamin B12 for iron deficiency. He does not take an oral iron. Denies melena or hematochezia currently. PAST MEDICAL HISTORY: Multiple medical problems as per HPI. REVIEW OF SYSTEMS: Denies weight loss. Denies night sweats, fevers. PHYSICAL EXAMINATION: GENERAL: Reveals chronically ill-appearing man, not in acute distress, not willing to answer questions, not cooperative with exam. VITAL SIGNS: Blood pressure 158/81, heart rate is 90, temperature 98.6, respirations 18. NECK: Supple neck. HEART: Normal S1, S2. LUNGS: Clear. ABDOMEN: Soft. No organomegaly. EXTREMITIES: No edema. No supraclavicular or axillary lymphadenopathy. LABORATORY DATA: White count 7.6, hemoglobin 7.7, platelets 268, MCV 75.1. Ferritin 20, folate 14.3, vitamin B12 794. ASSESSMENT AND PLAN: Iron deficiency anemia. The patient has well documented iron deficiency anemia in light of Crohn's disease. I recommended oral supplementation of ferrous sulfate 3 times a week. I tried to explain that the B12 does not treat iron deficiency anemia. He states "Whatever I recommend is strongly to consider followup with photo mask processor." Most likely he will need intravenous iron infusions once or twice [place] [address] CONSULTATION Name: PASCUAL REED Room: [address]#: [id number] Admission: 01/25/18 Attend Phys: Philip Guillory MD Discharge: 02/01/18 Date of : 50 Report #: [id number] Thank you very much for allowing me to participate in the care of this patient. <ELECTRONICALLY SIGNED> By: Astrid Colbert MD 02/08/18 1401 1422 MD melony De La Rosa
== END 2018-02-01 18:10 | disposition home or self-care (01) | DRG 602 ==
LOC: M.WC 08:24 → M.3W 08:41
PROVIDERS: Internal Medicine Hematology & Oncology; Psychiatry & Neurology Neuromuscular Medicine; ADMIT Internal Medicine
PROC: 05HY33Z Insertion of Infusion Device into Upper Vein, Percutaneous Approach (ICD-10-PCS; principal; 2018-01-25)
DX: L03.116 Cellulitis of left lower limb (principal); E43 Unspecified severe protein-calorie malnutrition; R65.10 Systemic inflammatory response syndrome (SIRS) of non-infectious origin without acute organ dysfunction; K50.90 Crohn's disease, unspecified, without complications; E11.51 Type 2 diabetes mellitus with diabetic peripheral angiopathy without gangrene; E11.621 Type 2 diabetes mellitus with foot ulcer; L03.115 Cellulitis of right lower limb; G89.29 Other chronic pain; D63.8 Anemia in other chronic diseases classified elsewhere; E11.42 Type 2 diabetes mellitus with diabetic polyneuropathy; N18.9 Chronic kidney disease, unspecified; R29.6 Repeated falls; L97.519 Non-pressure chronic ulcer of other part of right foot with unspecified severity; L97.529 Non-pressure chronic ulcer of other part of left foot with unspecified severity; E11.22 Type 2 diabetes mellitus with diabetic chronic kidney disease; I12.9 Hypertensive chronic kidney disease with stage 1 through stage 4 chronic kidney disease, or unspecified chronic kidney disease; D50.9 Iron deficiency anemia, unspecified; Z89.422 Acquired absence of other left toe(s); Z90.49 Acquired absence of other specified parts of digestive tract; Z87.442 Personal history of urinary calculi; Z68.25 Body mass index [BMI] 25.0-25.9, adult

== ENCOUNTER → 2018-02-07 | Outpatient (CLI) | payer OTHER ==
[~2018-02-07] MED LIST changes: +B12INJ SUBQ; +BETADINE1 EACH TOP; +CARAFATE1 GM/10 ML PO; +FENOFIBRATE48 MG PO; +MELATONIN3 MG PO; +MIRALAX17 GM PO; +PROBIOTIC1 EAC1 PO; +PROTONIX40 M1 PO
--- NOTE | 2018-02-09 13:06 | CON ---
[address] [address] CONSULTATION Name: PASCUAL REED Room: [facility] KAYCE VargheseGeno#: [id number] Admission: 02/07/18 Attend Phys: Grecia Gamez MD Discharge: Date of : 50 Report #: [id number] THIS REPORT FOR: //name// CC: Grecia Bernstein DATE OF SERVICE: 02/08/2018 INFECTIOUS DISEASE CONSULTATION: ATTENDING PHYSICIAN: Dr. Grecia Gamez. REASON FOR EVALUATION: Followup of bilateral foot wounds complicated by skin and soft tissue infection with cellulitis. HISTORY OF PRESENT ILLNESS: The patient returns today in followup, having been hospitalized last week with multiple distal lower extremity wounds, was problematic overlying the plantar aspect of the first metatarsophalangeal joint on the right. He was treated with several days of antibiotics. He self discharged, was felt to be healed sufficiently, was not discharged on additional systemic antibiotics. He is using some topical therapy with wound dressings. He generally has been feeling fairly well. He does remain somewhat weak, unsteady on his feet. There is no evidence of recent fevers or chills. Appetite has been only fair. He has not had a great deal of pain associated with his feet, although he does have peripheral neuropathy. Lower extremity wounds complicated by skin and soft tissue infections, latter seemed to have resolved. Continue wound care as prescribed. I do not think there is any need for systemic antibiotics at this point, continue to offload the requisite sites. Optimize his nutritional status. We will see him back as needed. <ELECTRONICALLY SIGNED> By: Luis Meier MD 02/09/18 1306 [id number] Meier MD /nt
== END ==
LOC: M.WC 01:25
DX: E11.621 Type 2 diabetes mellitus with foot ulcer (principal); L97.511 Non-pressure chronic ulcer of other part of right foot limited to breakdown of skin; L97.521 Non-pressure chronic ulcer of other part of left foot limited to breakdown of skin; E11.40 Type 2 diabetes mellitus with diabetic neuropathy, unspecified; E11.69 Type 2 diabetes mellitus with other specified complication; M86.8X8 Other osteomyelitis, other site; E78.5 Hyperlipidemia, unspecified; G89.29 Other chronic pain; I10 Essential (primary) hypertension; M19.90 Unspecified osteoarthritis, unspecified site; Z89.412 Acquired absence of left great toe

== ENCOUNTER → 2018-02-14 | Outpatient (CLI) | payer OTHER | LOC: M.WC 01:02 | DX: E11.621 Type 2 diabetes mellitus with foot ulcer (principal); L97.512 Non-pressure chronic ulcer of other part of right foot with fat layer exposed; L97.522 Non-pressure chronic ulcer of other part of left foot with fat layer exposed; L84 Corns and callosities; E11.69 Type 2 diabetes mellitus with other specified complication; M86.8X8 Other osteomyelitis, other site; E11.40 Type 2 diabetes mellitus with diabetic neuropathy, unspecified; E78.5 Hyperlipidemia, unspecified; I10 Essential (primary) hypertension; M19.90 Unspecified osteoarthritis, unspecified site; Z89.412 Acquired absence of left great toe; Z89.422 Acquired absence of other left toe(s) ==

== ENCOUNTER → 2018-02-28 | Outpatient (CLI) | payer OTHER | LOC: M.WC 08:36 | DX: E11.621 Type 2 diabetes mellitus with foot ulcer (principal); L97.512 Non-pressure chronic ulcer of other part of right foot with fat layer exposed; L97.522 Non-pressure chronic ulcer of other part of left foot with fat layer exposed; L84 Corns and callosities; E11.69 Type 2 diabetes mellitus with other specified complication; M86.8X8 Other osteomyelitis, other site; E11.40 Type 2 diabetes mellitus with diabetic neuropathy, unspecified; E78.5 Hyperlipidemia, unspecified; G89.29 Other chronic pain; I10 Essential (primary) hypertension; M19.90 Unspecified osteoarthritis, unspecified site; Z89.412 Acquired absence of left great toe; Z89.422 Acquired absence of other left toe(s) ==

== ENCOUNTER → 2018-03-14 | Outpatient (CLI) | payer OTHER | LOC: M.WC 03-07 09:00 | DX: E11.621 Type 2 diabetes mellitus with foot ulcer (principal); L97.512 Non-pressure chronic ulcer of other part of right foot with fat layer exposed; L97.522 Non-pressure chronic ulcer of other part of left foot with fat layer exposed; L84 Corns and callosities; E11.69 Type 2 diabetes mellitus with other specified complication; M86.8X8 Other osteomyelitis, other site; E11.40 Type 2 diabetes mellitus with diabetic neuropathy, unspecified; E78.5 Hyperlipidemia, unspecified; I10 Essential (primary) hypertension; M19.90 Unspecified osteoarthritis, unspecified site; Z89.412 Acquired absence of left great toe; Z89.422 Acquired absence of other left toe(s) ==

== ENCOUNTER → 2018-03-21 | Outpatient (CLI) | payer OTHER | LOC: M.WC 02:33 | DX: E11.621 Type 2 diabetes mellitus with foot ulcer (principal); L97.522 Non-pressure chronic ulcer of other part of left foot with fat layer exposed; L97.512 Non-pressure chronic ulcer of other part of right foot with fat layer exposed; L84 Corns and callosities; E11.69 Type 2 diabetes mellitus with other specified complication; M86.8X8 Other osteomyelitis, other site; E11.40 Type 2 diabetes mellitus with diabetic neuropathy, unspecified; E78.5 Hyperlipidemia, unspecified; G89.29 Other chronic pain; I10 Essential (primary) hypertension; M19.90 Unspecified osteoarthritis, unspecified site; Z89.412 Acquired absence of left great toe; Z89.422 Acquired absence of other left toe(s) ==

== ENCOUNTER → 2018-03-28 | Outpatient (CLI) | payer OTHER | LOC: M.WC 00:54 | DX: E11.621 Type 2 diabetes mellitus with foot ulcer (principal); L97.522 Non-pressure chronic ulcer of other part of left foot with fat layer exposed; L97.512 Non-pressure chronic ulcer of other part of right foot with fat layer exposed; L84 Corns and callosities; E11.69 Type 2 diabetes mellitus with other specified complication; M86.8X8 Other osteomyelitis, other site; G89.29 Other chronic pain; E11.40 Type 2 diabetes mellitus with diabetic neuropathy, unspecified; E78.5 Hyperlipidemia, unspecified; I10 Essential (primary) hypertension; M19.90 Unspecified osteoarthritis, unspecified site; Z89.412 Acquired absence of left great toe; Z89.422 Acquired absence of other left toe(s) ==

== ENCOUNTER → 2018-04-11 | Outpatient (CLI) | payer OTHER | LOC: M.WC 02:02 | DX: E11.621 Type 2 diabetes mellitus with foot ulcer (principal); L97.511 Non-pressure chronic ulcer of other part of right foot limited to breakdown of skin; L97.521 Non-pressure chronic ulcer of other part of left foot limited to breakdown of skin; L84 Corns and callosities; E11.40 Type 2 diabetes mellitus with diabetic neuropathy, unspecified; E11.69 Type 2 diabetes mellitus with other specified complication; M86.8X8 Other osteomyelitis, other site; E78.5 Hyperlipidemia, unspecified; G89.29 Other chronic pain; I10 Essential (primary) hypertension; K50.90 Crohn's disease, unspecified, without complications; M19.90 Unspecified osteoarthritis, unspecified site; Z89.412 Acquired absence of left great toe; Z89.422 Acquired absence of other left toe(s) ==

== ENCOUNTER → 2018-04-18 | Outpatient (CLI) | payer OTHER | LOC: M.WC 00:57 | DX: E11.621 Type 2 diabetes mellitus with foot ulcer (principal); L97.522 Non-pressure chronic ulcer of other part of left foot with fat layer exposed; L97.512 Non-pressure chronic ulcer of other part of right foot with fat layer exposed; L84 Corns and callosities; E11.69 Type 2 diabetes mellitus with other specified complication; M86.8X8 Other osteomyelitis, other site; E11.40 Type 2 diabetes mellitus with diabetic neuropathy, unspecified; E78.5 Hyperlipidemia, unspecified; G89.29 Other chronic pain; I10 Essential (primary) hypertension; M19.90 Unspecified osteoarthritis, unspecified site; Z89.412 Acquired absence of left great toe; Z89.422 Acquired absence of other left toe(s) ==

== ENCOUNTER → 2018-04-25 | Outpatient (CLI) | payer OTHER | LOC: M.WC 03:21 | DX: E11.621 Type 2 diabetes mellitus with foot ulcer (principal); L97.521 Non-pressure chronic ulcer of other part of left foot limited to breakdown of skin; L97.511 Non-pressure chronic ulcer of other part of right foot limited to breakdown of skin; L84 Corns and callosities; E11.69 Type 2 diabetes mellitus with other specified complication; M86.8X8 Other osteomyelitis, other site; E11.40 Type 2 diabetes mellitus with diabetic neuropathy, unspecified; E78.5 Hyperlipidemia, unspecified; G89.29 Other chronic pain; I10 Essential (primary) hypertension; M19.90 Unspecified osteoarthritis, unspecified site ==

== ENCOUNTER 2018-08-13 14:22 | Inpatient (IN) | payer OTHER ==
[~2018-08-13] VITALS: Ht 172.7 cm; Wt 74.4 kg
[~2018-08-13 14:22] MED LIST changes: -CARVEDILOL6.25 MG PO; +COREG6.25 MG PO
[2018-08-13 14:28] VITALS: BP 130/54
[2018-08-13] MEDS ORDERED: LISINOPRIL10 MG PO (14:36)
[2018-08-13 15:14] LABS: HEMATOCRIT 27.8 % (42.0-52.0); HEMOGLOBIN 9.1 gm/dL (14.0-18.0); MCH 24.6 pg (26.0-34.0); MCHC 32.7 g/dL (28.0-37.0); MCV 75.2 fL (80.0-100.0); MPV 7.1 fl. (7.2-11.1); NUCLEATED RBCS 0 /100WBC; PLATELET COUNT* 369 thou/uL (150-400); RDW-CV 13.6 % (10.5-14.5); WBC 12.9 thou/uL (4.0-11.0)
[2018-08-13 15:24] LABS: APTT 31.1 Seconds (25.0-31.3); INR 1.1; PROTIME 11.3 Seconds (9.20-11.50)
[2018-08-13 15:34] LABS: ANION GAP 13 mmol/L (7-16); BUN 104 mg/dL (7-18); CALCIUM 8.5 mg/dL (8.5-10.1); CHLORIDE 102 mmol/L (98-107); CO2 20 mmol/L (21-32); CREATININE 11.5 mg/dL (0.6-1.3); GLUCOSE 90 mg/dL (70-99); POTASSIUM 5.8 mmol/L (3.5-5.1); SODIUM 135 mmol/L (136-145); TROPONIN-I LEVEL <0.06 ng/mL (<0.06)
[2018-08-13 15:38] LABS: ALBUMIN 2.7 g/dL (3.4-5.0); ALKALINE PHOSPHATASE 42 U/L (46-116); LIPASE 2136 U/L (73-393); NT-PRO BRAIN NAT PEPTIDE 3402 pg/mL (<300); SGOT 15 U/L (15-37); SGPT 25 U/L (30-65); TOTAL BILIRUBIN 0.3 mg/dL (<0.1-1.0); TOTAL PROTEIN 7.3 g/dL (6.4-8.2)
[2018-08-13 15:51] LABS: ABSOLUTE BASOPHILS 0.1 thou/uL (0.0-0.2); ABSOLUTE EOSINOPHILS 0.1 thou/uL (0.0-0.7); ABSOLUTE MONOCYTES 0.3 thou/uL (0.0-1.2); ABSOLUTE NEUTROPHILS 11.4 thou/uL (1.6-8.1); PLATELET ESTIMATE ADEQUATE
[2018-08-13 15:53] LABS: MICROCYTES 1+
[2018-08-13 16:01] LABS: ACETAMINOPHEN < 2 ug/mL (10-30); ALCOHOL < 10 mg/dL (<10); SALICYLATE < 2.8 mg/dL (2.8-20.0)
--- NOTE | 2018-08-13 16:20 | NUR ---
PT BACK FROM RADIOLOGY VIA STRETCHER BY [facility]. PT REATTACHED TO MONITORS.
[2018-08-13 16:57] LABS: URINE BILIRUBIN NEGATIVE (Negative); URINE BLOOD 3+ (Negative); URINE CLARITY CLOUDY; URINE COLOR YELLOW; URINE GLUCOSE-RANDOM NEGATIVE (Negative); URINE KETONES NEGATIVE (Negative); URINE LEUKOCYTES-REFLEX NEGATIVE (Negative); URINE NITRITE-REFLEX NEGATIVE (Negative); URINE PROTEIN 3+ (Negative); URINE UROBILINOGEN 0.2 E.U./dl (0.2-1.0)
[2018-08-13 17:03] LABS: AMP/METHAMP Negative (Negative); BARBITURATES Negative (Negative); BENZODIAZEPINES Negative (Negative); COCAINE Negative (Negative); METHADONE Negative (Negative); OPIATES POSITIVE (Negative); PCP Negative (Negative); THC Negative (Negative)
--- NOTE | 2018-08-13 17:08 | NUR ---
RT AT BEDSIDE DRAWING ABGs
[2018-08-13 17:17] LABS: SQUAMOUS 0-3 Few /LPF (0-3); URINE RBC >20 Many /HPF (0-2); URINE WBC-REFLEX 0-5 Rare /HPF (0-5)
[2018-08-13 17:17] LABS: BE -11.5 mmol/L (-2 to +3); PCO2 33.4 mmHg (35.0-45.0); PO2 90.2 mmHg (75.0-100.0)
[2018-08-13 17:18] LABS: AMORPHOUS URATES Many /LPF (None Seen); CASTS None Seen /LPF (None Seen); CRYSTALS None Seen /LPF (None Seen); MUCUS None Seen strn/LPF (None Seen)
[2018-08-13 17:21] LABS: pH 7.258 (7.340-7.450)
--- NOTE | 2018-08-13 17:32 | NUR ---
MORE FAMILY AT BEDSIDE AND UPDATED ON PT STATUS. PT LAYING IN BED, EYES CLOSED, RESPIRATIONS EVEN AND UNLABORED. WILL WAKE TO NURSE CALLING PT NAME. PT ASKED FOR WATER, NURSE OFFERED MOUTH SWABS, PT ACCEPTED. MOUTH SWABS GIVEN TO PT. GLUCOSE RECHECKED. FAMILY MADE AWARE OF WAIT FOR ICU BED AFTER SHIFT CHANGE, 0. PT FAMILY STATED UNDERSTANDING.
--- NOTE | 2018-08-13 18:18 | NUR ---
PT MOVED FROM ER ROOM 16 TO ER ROOM 1 FOR CENTRAL LINE PLACEMENT. PT LETHARGIC, WILL ANSWER NURSE WHEN NURSE CALLS PT NAME, BUT DOES NOT OPEN EYES JUST STATES "YEAH" IN A SLOWED SPEECH. GLUCOSE CHECKED AGAIN. RESULTS 69. DR. VÁZQUEZ MADE AWARE.
--- NOTE | 2018-08-13 18:59 | NUR ---
REPORT GIVEN TO ANDRESSA PAUL WHO IS TO ASSUME PT CARE AT THIS TIME.
[2018-08-13 20:00] VITALS: BP 135/60
--- NOTE | 2018-08-13 21:08 | NUR ---
IVF ORDER CLARIFIED WITH DR VÁZQUEZ AND DR KELLEY. BICARB GTT TO RUN CONSECUTIVELY WITH NS 1L @ 250ML/HR THEN NS @ 125ML/HR THEREAFTER.
[2018-08-14] VITALS (13 sets, daily range): BP systolic 133–153; BP diastolic 46–75
--- NOTE | 2018-08-14 03:31 | NUR ---
ASSUMED CARE OF PT AT 2009. PT WAS VERY DROWSY AND CONFUSED. PT UNABLE TO TELL ME WHERE HE IS OR WHAT MONTH. PT HAS BEEN GETTING LARGE AMOUNT OF FLUIDS. ALSO GETTING BICARB. PTS MENTAL STATUS APPEARS TO BE IMPROVING AT THIS TIME. PT WAS ABLE TO TELL ME WHERE HE IS. ALSO, PTS RESPIRATORY RATE HAS WENT FROM 6 AND 7 TO 10-12 NOW. WHICH IS EVIDENCE THAT HIS HCO3 AND PH ARE IMPROVING. PTS VSS. PERRLA. PT HAS BANDAGES ON HIS FEET AND PART OF HIS LEFT GREAT TOE IS AMPUTATED BUT IS A POOR HISTORIAN AND I AM UNABLE ASCERTAIN THE HISTORY BEHIND THE WOUNDS ON HIS FEET. PT IS IN SINUS RYTHM. PT IS SLEEPING COMFORTABLY IN BED. RESPIRATIONS ARE EVEN AND NONLABORED. WILL CONTINUE TO MONITOR PT.
[2018-08-14 03:56] LABS: ABSOLUTE EOSINOPHILS 0.1 thou/uL (0.0-0.7); ABSOLUTE MONOCYTES 0.7 thou/uL (0.0-1.2); ABSOLUTE NEUTROPHILS 7.5 thou/uL (1.6-8.1); BASOPHILS 0.3 %; EOSINOPHILS 0.9 %; HEMOGLOBIN 7.8 gm/dL (14.0-18.0); LYMPHOCYTES 10.9 %; MCH 24.9 pg (26.0-34.0); MCHC 32.7 g/dL (28.0-37.0); MCV 76.1 fL (80.0-100.0); MONOCYTES 7.1 %; MPV 7.2 fl. (7.2-11.1); NUCLEATED RBCS 0 /100WBC; POLYS 80.8 %; RBC 3.16 mil/uL (4.50-6.00); RDW-CV 13.8 % (10.5-14.5); WBC 9.3 thou/uL (4.0-11.0)
[2018-08-14 04:17] LABS: PREALBUMIN 15.7 mg/dL (18.0-35.7)
[2018-08-14 04:18] LABS: PLATELET COUNT* 280 thou/uL (150-400)
[2018-08-14 04:22] LABS: ALBUMIN 2.1 g/dL (3.4-5.0); CALCIUM 7.9 mg/dL (8.5-10.1); POTASSIUM 5.3 mmol/L (3.5-5.1); TOTAL BILIRUBIN 0.2 mg/dL (<0.1-1.0); TOTAL PROTEIN 6.1 g/dL (6.4-8.2)
[2018-08-14 04:24] LABS: CREATININE 9.9 mg/dL (0.6-1.3)
--- NOTE | 2018-08-14 13:42 | EKG ---
[place] [address] ELECTROCARDIOGRAM REPORT Name: PASCUAL REED Room: [address] ADM IN M.R.#: [id number] Admission: 08/13/18 Attend Phys: Philip Guillory MD Discharge: Date of : 50 Report #: [id number] THIS REPORT FOR: //name// [facility] ED Test Date: 2018-08-13 Test Time: 14:39:55 Pat Name: PASCUAL REED Department: Room: [facility] Gender: M Scallop Raker: : 1950 Requested By: Lizbeth Hartman Order Number: [id number] MD: aTco Messer Measurements Intervals Philo Rate: 97 P: 12 MA: 146 QRS: 34 QRSD: 88 T: -2 QT: 323 QTc: 411 Interpretive Statements Sinus rhythm Borderline T abnormalities, inferior leads Compared to ECG 06/12/2015 22:45:30 no change Electronically Signed On 08-14-2018 13:42:25 CDT by Taco Messer [email or web address] <ELECTRONICALLY SIGNED> By: Taco Messer MD, [facility] 08/14/18 1342 1439 [id number] Taco Messer MD, [facility] /EPI
[2018-08-14 15:48] LABS: URINE BILIRUBIN NEGATIVE (Negative); URINE BLOOD 3+ (Negative); URINE CLARITY CLEAR; URINE COLOR YELLOW; URINE GLUCOSE-RANDOM TRACE (Negative); URINE KETONES NEGATIVE (Negative); URINE LEUKOCYTES NEGATIVE (Negative); URINE NITRITE NEGATIVE (Negative); URINE PROTEIN 2+ (Negative); URINE UROBILINOGEN 0.2 E.U./dl (0.2-1.0)
[2018-08-14 16:28] LABS: HYALINE CASTS 0-3 Few /LPF (None Seen); MUCUS 0-3 Light strn/LPF (None Seen); SQUAMOUS 0-3 Few /LPF (0-3)
[2018-08-14 16:29] LABS: URINE WBC 0-5 Rare /HPF (0-5)
[2018-08-14 16:30] LABS: BACTERIA 1-9 Few /HPF (None Seen); CRYSTALS None Seen /LPF (None Seen); URINE RBC >20 Many /HPF (0-2)
--- NOTE | 2018-08-14 17:46 | NUR ---
PT RESTING IN BED THROUGHOUT SHIFT. REPOSITIONED SELF IN BED WITH PROMPTING. TOLERATING PO WELL. IVF INFUSING. LABS IMPROVING. PT REMAINS DROWSY. AT BS AND UPDATED ON PLAN OF CARE
[2018-08-15] VITALS (7 sets, daily range): BP systolic 145–166; BP diastolic 60–77
[2018-08-15 04:35] LABS: CALCIUM 7.4 mg/dL (8.5-10.1); POTASSIUM 4.4 mmol/L (3.5-5.1)
[2018-08-15 04:38] LABS: CREATININE 8.9 mg/dL (0.6-1.3)
--- NOTE | 2018-08-15 06:02 | NUR ---
PT TRANSFERED FORM ICU, REPORT RECIEVED FROM KIRSTY CRISOSTOMO. PT TRANSERED UP VIA W/C. IV IN RIGHT AC WAS INFILTRATED. DR NOTIFIED, PHARMACY CALLED. WARM COMPRESSES PER PHARMACY RECOMENDATION, OKAYED WITH DRGeno FLUIDS INFUSING. NO REPORTS OF PAIN OTHER THAN RIGHT ARM. TELE MONITOR READING SR. WILL CONTINUE WITH PLAN OF CARE.
--- NOTE | 2018-08-15 09:40 | CON ---
[address] [address] CONSULTATION Name: PASCUAL REED Room: [address] IN M.R.#: [id number] Admission: 08/13/18 Attend Phys: Philip Guillory MD Discharge: Date of : 50 Report #: [id number] THIS REPORT FOR: //name// CC: Philip Bernstein DATE OF SERVICE: 08/14/2018 CONSULTING PHYSICIAN: Dr. Patel and Dr. Guillory. REASON FOR NEPHROLOGY CONSULTATION: Acute kidney injury and altered mental status. REASON FOR ADMISSION: Altered mental status and acute kidney injury. HISTORY OF PRESENT ILLNESS: This is a 67-year-old male with past medical history of hypertension along with history of kidney stones and Crohn's disease and other medical problems, who was brought in by the patient's yesterday because of confusion and the patient was having weakness and he was unable to grab things and hold things. He was at a car show when his noticed that he was having this worsening mental status changes which started about 3 days prior to admission. He was found to be in acute kidney injury with a BUN of 104. His potassium was 5.8. His creatinine was 11.5. It looks like his baseline is more close to 1.2-1.3. The patient states that he usually does not drink much water. He is not a very good historian since he has just become more lucid in the last couple of hours and he does not know his medications as well. He also had a profound metabolic acidosis and he was given IV fluids with bicarbonate and his acidosis stayed stable and he made quite a bit of urine, about 1.4 liters overnight. He was also diagnosed with possible colitis versus pancreatitis and he is being kept n.p.o. for that. His home medications do include lisinopril. In a separate part of his chart, I saw that he could have been on meloxicam and hydrochlorothiazide as well. It looks like he is also on proton pump inhibitor and sucralfate. ALLERGIES: No known allergies. REVIEW OF SYSTEMS: As mentioned in history of present illness. The patient is not a very good historian, so limited review of systems. HOME MEDICATIONS: Include clonidine, lisinopril, multivitamin, gabapentin, oxycodone, morphine sulfate, hydroxyzine, fenofibrate, polyethylene glycol, carvedilol. PAST MEDICAL AND SURGICAL HISTORY: Includes kidney stones, Crohn's disease, bowel resection x 2, chronic kidney disease stage 2 with baseline creatinine 1.2-1.3 and it could be because of kidney stones and hypertension, appendectomy, [place] [address] CONSULTATION Name: PASCUAL REED Room: [address] IN M.R.#: [id number] Admission: 08/13/18 Attend Phys: Philip Guillory MD Discharge: Date of : 50 Report #: [id number] cholecystectomy, high blood pressure, left foot infection, left great ____ metatarsal amputation, neuropathy, pancreatitis. FAMILY HISTORY: No reported history of any kidney disease in the family. SOCIAL HISTORY: Lives at home with his . Does not smoke or drink alcohol or use recreational drugs according to the patient's history this morning. PHYSICAL EXAMINATION: VITAL SIGNS: Blood pressure is 135/60, temperature is 36.4, pulse is 71, respiratory rate is 16, pulse ox 100% on 4 liters of oxygen by nasal cannula. GENERAL: He is awake and alert and he is oriented to place and person, but he is not oriented to the situation completely. He is still little bit slow to respond. HEAD, EYES, EARS, NOSE AND THROAT: Mucous membranes seem to be moist. NECK: There is no JVD. CHEST: Bilateral diminished breath sounds anteriorly. No crackles or wheezing. CARDIOVASCULAR: S1, S2 normal. No murmurs heard. ABDOMEN: Soft, nondistended, nontender. Bowel sounds are present. EXTREMITIES: Lower extremities, there is no edema. Bilaterally symmetrical lower extremities. NEUROLOGICAL FUNCTION: Still slow to respond, although orientation is slowly improving. PSYCHIATRIC: Cannot assess right now. LABORATORY DATA: Hemoglobin is 7.8, potassium is 5.3, sodium is 138. His CO2 is 17, his creatinine is 9.9, his BUN is 92. His lipase is 2000 and his albumin is 2.1. Other labs are reviewed. IMAGING: Head CT, abdominal/pelvic CT, cervical spine CT and chest x-ray were reviewed. ASSESSMENT: 1. Acute kidney injury on chronic kidney disease stage 2 with baseline creatinine 1.2-1.3, acute kidney injury in the setting of intravascular volume depletion, use of lisinopril. I am not sure if he was on any diuretic or NSAIDs. UA shows evidence of 3+ protein and 3+ blood, should be repeated at a later time. We will be repeating it today as well. Renal ultrasound showed evidence of bilateral renal cysts with 1 hemorrhagic cyst in the right kidney and several calcifications in bilateral kidneys, could be kidney stones. This was on a CT scan and ultrasound is being repeated. Acute kidney injury slowly improving with IV fluids. 2. Anion-gap anion gap metabolic acidosis due to renal insufficiency, improving with bicarbonate drip. 3. Confusion, likely because of renal insufficiency. 4. History of Crohn's disease. Defer to primary. [address] [place] [address] CONSULTATION Name: PASCUAL REED Room: [address] ADM IN M.R.#: [id number] Admission: 08/13/18 Attend Phys: Philip Guillory MD Discharge: Date of : 50 Report #: [id number] 5. Elevated lipase, possible pancreatitis. We will defer to IM, possible colitis. 6. History of chronic pain syndrome. He is on opiates. 7. Acute hypoxic respiratory failure. PLAN: 1. Stop the IV fluids and increase the bicarbonate drip, D5 water with 3 amps of sodium bicarbonate at 125 mL an hour. 2. Verify his home medications. 3. Avoid nephrotoxic agents, IV contrast, NSAIDs. 4. There is no acute need for dialysis. He is improving renal function [place] for now. 5. We will check serum immunofixation, serum kappa to lambda light chain ratio as well. 6. Also follow the renal ultrasound. Thank you for this consultation. More than 35 minutes of critical care time spent and care was discussed with the patient and the patient's nurse. <ELECTRONICALLY SIGNED> By: Aileen Maldonado MD 08/15/18 0940 0818 [id number] isela Maldonado MD /nt
[2018-08-15 10:06] LABS: IgA 256 mg/dL (61-437); IgG 949 mg/dL (700-1600); IgM 36 mg/dL (20-172)
[2018-08-15 10:06] LABS: KAPPA FREE LIGHT CHAINS 111.9 mg/L (3.3-19.4); LAMBDA FREE LIGHT CHAINS 89.1 mg/L (5.7-26.3)
--- NOTE | 2018-08-15 11:00 | NUR ---
VSS, ASSUMED CARE IN THE AM, ASSESSMENT PERFORMED AND CHARTED, FALL PRECAUTIONS IN PLACE AND CALL LIGHT IN REACH, PT IS A&O2-3, ON RA, UP WITH 1 AND WALKER, HE IS TRACING SR ON THE MONITOR, HIS IS AT THE BEDSIDE, MASTERSON IN IN PLACE AND IS DRAINING, PT DENIES ANY PAIN HIS GOAL IS TO IMPROVE MENTATION AND SIT UP IN BED TO BEDSIDE. WILL FOLOW WITH PLAN OF CARE.
--- NOTE | 2018-08-15 14:27 | NUR ---
MET WITH PT TO AND TO DISCUSS HOME SITUATION/DC PLANNING. PT LIVES WITH . HE IS NORMALLY INDEPENDENT AND ACTIVE. USES NO EQUIPMENT. HAD HH IN THE PAST BUT NOT CURRENTLY. PLAN IS TO RETURN HOME AT DC. WILL FOLLOW
[2018-08-16] VITALS: BP 157/65
--- NOTE | 2018-08-16 03:05 | NUR ---
ASSUMED CARE OF PT AT 1900. PT IS ALERT AND OREINTED BUT ALSO CAN BE CONFUSED AT TIMES. VSS. PERRLA. NO COMPLAINTS OF PAIN. PT HAS MASTERSON IN PLACE. PT IS IN SINUS RYTHM ON THE TELEMETRY. PT IS RESTING COMFORTABLY IN BED. RESPIRATIONS ARE EVEN AND NONLABORED. WILL CONTINUE TO MONITOR PT.
[2018-08-16 04:00] VITALS: BP 159/71
[2018-08-16 05:46] LABS: CALCIUM 7.6 mg/dL (8.5-10.1); CREATININE 8.4 mg/dL (0.6-1.3); POTASSIUM 4.4 mmol/L (3.5-5.1)
[2018-08-16 08:41] VITALS: BP 161/77
[2018-08-16 09:48] LABS: ABSOLUTE EOSINOPHILS 0.1 thou/uL (0.0-0.7); ABSOLUTE LYMPHOCYTES 0.8 thou/uL (0.8-5.3); ABSOLUTE MONOCYTES 0.5 thou/uL (0.0-1.2); ABSOLUTE NEUTROPHILS 4.9 thou/uL (1.6-8.1); BASOPHILS 0.6 %; EOSINOPHILS 2.3 %; HEMATOCRIT 21.9 % (42.0-52.0); HEMOGLOBIN 7.2 gm/dL (14.0-18.0); LYMPHOCYTES 12.1 %; MCH 24.8 pg (26.0-34.0); MONOCYTES 8.5 %; MPV 7.1 fl. (7.2-11.1); NUCLEATED RBCS 0 /100WBC; POLYS 76.5 %; RBC 2.92 mil/uL (4.50-6.00); RDW-CV 13.6 % (10.5-14.5); WBC 6.4 thou/uL (4.0-11.0)
[2018-08-16 09:50] LABS: PLATELET COUNT* 380 thou/uL (150-400)
[2018-08-16 10:09] LABS: COMPLEMENT-C4 21 mg/dL (14-44)
[2018-08-16 10:51] VITALS: BP 161/77
[2018-08-16 14:06] VITALS: BP 135/61
[2018-08-16 17:07] LABS: HEPATITIS B SURFACE AG Negative (Negative)
[2018-08-16 20:00] VITALS: BP 156/75
[2018-08-17] VITALS (7 sets, daily range): BP systolic 138–181; BP diastolic 66–84
--- NOTE | 2018-08-17 05:39 | NUR ---
ASSUMED PT CARE AT 1930. ASSESSMENT COMPLETED CHARTED. ABLE TO MAKE NEEDS KNOWN. IV FLUIDS INFUSING PER P.O. PT RESTING OFF AND ON DURING THE NIGHT AFTER GETTING ORDERS FOR SLEEPING AND PAIN MEDICATION. C/O ABDOMINAL AND BACK PAIN, CHRONIC. MASTERSON DRAINING WITHOUT ISSUES. WILL CONTINUE TO MONITOR.
[2018-08-17 05:44] LABS: ABSOLUTE EOSINOPHILS 0.2 thou/uL (0.0-0.7); ABSOLUTE LYMPHOCYTES 0.8 thou/uL (0.8-5.3); ABSOLUTE MONOCYTES 0.6 thou/uL (0.0-1.2); ABSOLUTE NEUTROPHILS 5.9 thou/uL (1.6-8.1); BASOPHILS 0.3 %; EOSINOPHILS 2.2 %; HEMATOCRIT 22.7 % (42.0-52.0); HEMOGLOBIN 7.9 gm/dL (14.0-18.0); LYMPHOCYTES 10.4 %; MCH 25.7 pg (26.0-34.0); MCHC 34.6 g/dL (28.0-37.0); MCV 74.2 fL (80.0-100.0); MONOCYTES 7.5 %; MPV 6.6 fl. (7.2-11.1); NUCLEATED RBCS 0 /100WBC; PLATELET COUNT* 384 thou/uL (150-400); POLYS 79.6 %; RBC 3.06 mil/uL (4.50-6.00); RDW-CV 13.5 % (10.5-14.5); WBC 7.4 thou/uL (4.0-11.0)
[2018-08-17 06:08] LABS: CALCIUM 7.7 mg/dL (8.5-10.1); CREATININE 7.5 mg/dL (0.6-1.3); POTASSIUM 3.7 mmol/L (3.5-5.1)
--- NOTE | 2018-08-17 11:03 | NUR ---
VSS, ASSUMED CARE IN THE AM, ASSESSMENT PERFORMED AND CHARTED, FALL PRECAUTIONS IN PLACE AND CALL LIGHT IN REACH, PT HAS FAMILY AT BEDSIDE, HE IS ON RA, TRACING SR ON THE MONITOR, HIS GOAL IS TO WORK WITH PT/OT AND WALK THE ESTRELLA, PT HAS MASTERSON IN PLACE AND IS IN PLACE AND DRAINING, WILL FOLLOW WITH PLAN OF CARE
--- NOTE | 2018-08-17 12:12 | NUR ---
CONTINUE TO FOLLOW, MET [facility] PT AND . PT VOICING PAINFUL TODAY. TO WORK WITH THERAPY.
[2018-08-18] VITALS (7 sets, daily range): BP systolic 147–196; BP diastolic 71–101
--- NOTE | 2018-08-18 05:34 | NUR ---
ASSUMED CARE OF PT AFTER REPORT AT 1930. PT A&OX4. VSS. PHYSICAL ASSESSMENT COMPLETED AND CHARTED. PT ON RA. PT TRACING SR/PVC ON TELE. PT UPSTANDBY TO RESTROOM. PT WITH EPISODES OF INCONTINENT BOWEL. PT WITH MASTERSON TO DEPENDENT DRAIN. PT COMPLAINED OF GENERALIZED PAIN- PAIN MEDS GIVEN PER JUN. PT ALSO COMPLAINED OF STOMACHACHE AND WAS BLOATED- DR CRONIN INFORMED WITH NEW ORDER. PT BP ELEVATED. HYDRALAZINE GIVEN. STILL WITH ELEVATED BP. PT ALSO REQUESTED SOMETHING FOR ANXIETY. PROVIDER MADE AWARE WITH NO ORDERS. CALL LIGHT WITHIN REACH.
[2018-08-18 05:39] LABS: HEMATOCRIT 23.7 % (42.0-52.0); HEMOGLOBIN 8.2 gm/dL (14.0-18.0); MCH 25.3 pg (26.0-34.0); MCHC 34.5 g/dL (28.0-37.0); MCV 73.1 fL (80.0-100.0); MPV 6.4 fl. (7.2-11.1); NUCLEATED RBCS 0 /100WBC; PLATELET COUNT* 409 thou/uL (150-400); RBC 3.23 mil/uL (4.50-6.00); RDW-CV 13.6 % (10.5-14.5); WBC 9.1 thou/uL (4.0-11.0)
[2018-08-18 06:06] LABS: ALBUMIN 2.1 g/dL (3.4-5.0); CREATININE 6.7 mg/dL (0.6-1.3); POTASSIUM 3.3 mmol/L (3.5-5.1); TOTAL BILIRUBIN 0.3 mg/dL (<0.1-1.0); TOTAL PROTEIN 6.2 g/dL (6.4-8.2)
[2018-08-18 06:09] LABS: ABSOLUTE LYMPHOCYTES 0.8 thou/uL (0.8-5.3); ABSOLUTE MONOCYTES 0.1 thou/uL (0.0-1.2); ABSOLUTE NEUTROPHILS 8.2 thou/uL (1.6-8.1); ANISOCYTOSIS 1+; PLATELET ESTIMATE INCREASED; POIKILOCYTOSIS 1+
[2018-08-18 10:06] LABS: GLOMERULR BASEM MEMBRN AB 3 units (0-20)
--- NOTE | 2018-08-18 10:36 | NUR ---
0730 ASSUMED CARE OF PATIENT. SEE DOCUMENTED ASSESSMENT. BLOOD PRESSURE STILL HIGH
--- NOTE | 2018-08-18 10:37 | NUR ---
0745 INCONTINENT OF STOOL THAT IS BOTH LOOSE AND FORMED. DPES NOT KNOW UNTIL AFTER HE HAS GONE
--- NOTE | 2018-08-18 11:43 | NUR ---
NEW IV PLACED BY INFUSION NURSE WITH ULTRASOUND
--- NOTE | 2018-08-18 11:44 | NUR ---
WOUNDS REDRESSED BY VASCULAR NURSE
--- NOTE | 2018-08-18 12:24 | CON ---
[address] [address] CONSULTATION Name: PASCUAL REED Room: [address] ADM IN M.R.#: [id number] Admission: 08/13/18 Attend Phys: Philip Guillory MD Discharge: Date of : 50 Report #: [id number] THIS REPORT FOR: //name// CC: Philip Guillory Diego Amandeep DATE OF SERVICE: 08/17/2018 INFECTIOUS DISEASE CONSULTATION: ATTENDING PHYSICIAN: Philip Guillory MD. REASON FOR EVALUATION: Encephalopathy, bilateral lower extremity wounds in the setting of acute renal failure. HISTORY OF PRESENT ILLNESS: Chart reviewed. Patient examined. This is a 67-year-old gentleman with known peripheral neuropathy seen previously, has undergone issues due to chronic osteomyelitis involving his feet. He has had amputations, longstanding wound care, who apparently was doing fairly well, had a sudden change in his clinical status. He became quite encephalopathic. Per spouse, had fallen, although it was not apparently a hurt. He lost control of his coordination including hand, was evaluated and was found to have an inflammatory process involving his left foot that was fairly abrupt in onset, does have a chronic ulceration involving the plantar aspect of his right first MTP as well. Significantly, his creatinine was greater than 11. On review of previous creatinine back in 01/2018, it was 2.0. It has since come down to 7.5. Cultures were collected, had growth at both sites of Staph aureus in addition to Gram-negative Proteus and E. coli. He is still quite somnolent at this point. Spouse is present. He has not had any documented fevers. He has had a diminished appetite. Denies significant pulmonary-related complaints. He has had some abdominal discomfort with some dry heaves. He is now dosed with vancomycin, piperacillin tazobactam. ALLERGIES: None known. MEDICATIONS: Include Zosyn, tramadol, vancomycin, oxycodone, pantoprazole, p.r.n. analgesics and antiemetics. PAST MEDICAL HISTORY: History of Crohn's disease, hypertension, history of pancreatitis, peripheral neuropathy, has had left great toe partial first metatarsal amputation for chronic osteomyelitis. Previous cholecystectomy, [place] [address] CONSULTATION Name: PASCUAL REED Room: [address] IN [facility].#: [id number] Admission: 08/13/18 Attend Phys: Philip Guillory MD Discharge: Date of : 50 Report #: [id number] SOCIAL HISTORY: Nonsmoker, no ethanol. FAMILY HISTORY: Noncontributory. REVIEW OF SYSTEMS: Not reliably obtained. PHYSICAL EXAMINATION: GENERAL: He does arouse, but briefly falls back to sleep. He appears chronically ill and undernourished, mild to moderate distress. VITAL SIGNS: Temperature 97.5, pulse 87, respirations 17, blood pressure 160/82. SKIN: Warm, dry, no rashes. HEENT: He is bald at this point. NECK: Supple. He is normocephalic. LUNGS: Diminished breath sounds. HEART: Regular. I do not appreciate a murmur. ABDOMEN: Soft, nontender, nondistended. EXTREMITIES: Bilateral lower extremities moderate degree of inflammation. On the dorsal aspect of the left foot, he has got a breech, it is quite tender and again on the right there is a plantar first MTP ulcer that has some moderate degree of necrotic material. Cultures as described above. LABORATORY DATA: Most recent electrolytes, sodium 144, potassium 3.7, chloride 107, bicarbonate 24, anion gap of 13, BUN and creatinine 63 and 7.5, down from 11.5. Random vancomycin is 17 earlier today. CBC: White count of 7.4, H and H 7.9 and 22.7, platelets of 384. ASSESSMENT AND PLAN: Encephalopathy, lower extremity skin and soft tissue infections, severe and acute renal failure on top of chronic renal insufficiency. We will adjust antimicrobial therapy. At this point, suspect toxin-induced renal failure. We will see how he does clinically. My hope is that the encephalopathy will resolve as his overall organ function improves. Discussed with his spouse. <ELECTRONICALLY SIGNED> By: Luis Meier MD 08/18/18 1224 1452 [id number] Meier MD /nt
--- NOTE | 2018-08-18 16:36 | NUR ---
ULTRAOUND OF ABD DONE
[2018-08-18 18:06] LABS: ANA INTERPRETATION Negative (())
[2018-08-19] VITALS (7 sets, daily range): BP systolic 161–178; BP diastolic 78–92
[2018-08-19 03:57] LABS: ABSOLUTE EOSINOPHILS 0.1 thou/uL (0.0-0.7); ABSOLUTE LYMPHOCYTES 0.6 thou/uL (0.8-5.3); ABSOLUTE MONOCYTES 0.5 thou/uL (0.0-1.2); ABSOLUTE NEUTROPHILS 8.5 thou/uL (1.6-8.1); BASOPHILS 0.2 %; EOSINOPHILS 1.2 %; HEMATOCRIT 26.3 % (42.0-52.0); HEMOGLOBIN 8.8 gm/dL (14.0-18.0); LYMPHOCYTES 5.9 %; MCH 24.9 pg (26.0-34.0); MCHC 33.3 g/dL (28.0-37.0); MCV 74.6 fL (80.0-100.0); MONOCYTES 5.3 %; MPV 6.1 fl. (7.2-11.1); NUCLEATED RBCS 0 /100WBC; PLATELET COUNT* 438 thou/uL (150-400); POLYS 87.4 %; RBC 3.53 mil/uL (4.50-6.00); RDW-CV 13.6 % (10.5-14.5); WBC 9.7 thou/uL (4.0-11.0)
[2018-08-19 04:24] LABS: CALCIUM 8.2 mg/dL (8.5-10.1); CREATININE 5.9 mg/dL (0.6-1.3); MAGNESIUM 1.9 mg/dL (1.8-2.4); POTASSIUM 3.6 mmol/L (3.5-5.1)
[2018-08-19 04:31] LABS: PREALBUMIN 14.7 mg/dL (18.0-35.7)
--- NOTE | 2018-08-19 05:48 | NUR ---
VITALS WNL. SEE MAR. SEE CHARTING. FALL PRECAUTIONS IN PLACE. HOURLY ROUNDING FOR SAFETY.
--- NOTE | 2018-08-19 13:28 | NUR ---
Nutrition: pt screen for LOS. Admit with JW, CKD. Hx of wounds, not documented as pressure related. Wt up from admit last fall. RFT's elevated. CO2 and albumin low. Lipase has gone up since admit, now 8023. Pt has been NPO only recenlty, earlier in stay there was nsg note of pt tolerating meals. Assess at mild nutrition risk at this time, rec RD follow up 08/24.
[2018-08-20 04:00] VITALS: BP 175/92
[2018-08-20 05:11] LABS: ABSOLUTE EOSINOPHILS 0.2 thou/uL (0.0-0.7); ABSOLUTE LYMPHOCYTES 0.7 thou/uL (0.8-5.3); ABSOLUTE MONOCYTES 0.4 thou/uL (0.0-1.2); ABSOLUTE NEUTROPHILS 8.3 thou/uL (1.6-8.1); BASOPHILS 0.1 %; EOSINOPHILS 1.7 %; LYMPHOCYTES 7.1 %; MCH 24.7 pg (26.0-34.0); MCHC 33.3 g/dL (28.0-37.0); MCV 74.2 fL (80.0-100.0); MONOCYTES 3.9 %; MPV 6.1 fl. (7.2-11.1); NUCLEATED RBCS 0 /100WBC; PLATELET COUNT* 392 thou/uL (150-400); POLYS 87.2 %; RBC 3.64 mil/uL (4.50-6.00); RDW-CV 14.3 % (10.5-14.5); WBC 9.5 thou/uL (4.0-11.0)
[2018-08-20 05:51] LABS: ALBUMIN 2.2 g/dL (3.4-5.0); CALCIUM 8.6 mg/dL (8.5-10.1); CREATININE 5.5 mg/dL (0.6-1.3); POTASSIUM 3.1 mmol/L (3.5-5.1); TOTAL BILIRUBIN 0.3 mg/dL (<0.1-1.0); TOTAL PROTEIN 6.8 g/dL (6.4-8.2)
--- NOTE | 2018-08-20 06:10 | NUR ---
VITALS WNL. SEE MAR. SEE CHARTING. FALL PRECAUTIONS IN PLACE. HOURLY ROUNDING FOR SAFETY
[2018-08-20 08:00] VITALS: BP 197/97
[2018-08-20 14:53] VITALS: BP 134/71
[2018-08-20 16:23] VITALS: BP 177/90
--- NOTE | 2018-08-20 16:54 | NUR ---
I ASSUMED CARE OF THE PATIENT AT 0700. HE IS ALERT AND ORIENTED X4 AND IS UP WITH STAND BY ASSIST. HE IS ON ROOM AIR AND CAN ONLY HAVE SIPS WITH MEDS. HOURLY ROUNDING IS COMPLETED AND PATIENT NEEDS ARE MET. PAIN IS PARTIALLY MANAGED WITH PRN MEDS. POTASSIUM IS LOW, BUT WAITING ON RENAL TO INITIATE PROTOCOL. WILL CONTINUE TO MONITOR. IS AT THE BEDSIDE.
[2018-08-20 19:30] VITALS: BP 179/82
[2018-08-21 00:54] VITALS: BP 163/73
[2018-08-21 04:00] VITALS: BP 173/85
[2018-08-21 04:57] LABS: HEMATOCRIT 27.2 % (42.0-52.0); HEMOGLOBIN 9.1 gm/dL (14.0-18.0); MCH 24.7 pg (26.0-34.0); MCHC 33.5 g/dL (28.0-37.0); MCV 73.7 fL (80.0-100.0); RBC 3.69 mil/uL (4.50-6.00); WBC 10.1 thou/uL (4.0-11.0)
[2018-08-21 05:30] LABS: ALBUMIN 2.3 g/dL (3.4-5.0); CALCIUM 8.6 mg/dL (8.5-10.1); CREATININE 5.5 mg/dL (0.6-1.3); MAGNESIUM 1.9 mg/dL (1.8-2.4); TOTAL BILIRUBIN 0.3 mg/dL (<0.1-1.0); TOTAL PROTEIN 6.8 g/dL (6.4-8.2)
[2018-08-21 05:34] LABS: POTASSIUM 2.9 mmol/L (3.5-5.1)
--- NOTE | 2018-08-21 07:25 | NUR ---
POTASSIUM 2.9 DR LINDSAY NOTIFIED ORDERS RECIEVED. PT REPORTS PAIN MANAGEMENT NOT CONTROLED BY CURRENT REGEMENT. SEE MAR. SEE CHARTING. FALL PRECAUTIONS IN PLACE. HOURLY ROUNDING FOR SAFETY.
[2018-08-21 07:30] VITALS: BP 190/93
[2018-08-21 15:08] LABS: CALCIUM 8.3 mg/dL (8.5-10.1); CREATININE 5.6 mg/dL (0.6-1.3); POTASSIUM 3.1 mmol/L (3.5-5.1)
[2018-08-21 16:20] VITALS: BP 174/64
--- NOTE | 2018-08-21 19:23 | NUR ---
PATIENT PARTIALLY PROGRESSING TOWARDS GOALS. PAIN BETTER CONTROLLED THIS AFTERNOON WITH PRN PAIN MEDICATIONS. REPLACING POTASSIUM PER RENAL. PATIENT UP IN THE CHAIR THIS AFTERNOON. BED LINENDS CHANGED PER NURSING STAFF. ADVANCED TO CLEAR LIQUIDS THIS SHIFT. PATIENT DID NOT TOLERATE WELL. C/O SEVERE ABDOMINAL PAINS AFTER DRINKING APPLE JUICE. HOURLY ROUNDING CHARTED. CALL LIGHT WITHIN REACH. HAS BEEN AT BEDSIDE ENTIRE MORNING AND AFTERNOON. WILL CONTINUE TO MONITOR.
[2018-08-21 19:30] VITALS: BP 186/85
[2018-08-22] VITALS: BP 170/77
[2018-08-22 04:00] VITALS: BP 185/89
[2018-08-22 05:26] LABS: HEMATOCRIT 26.7 % (42.0-52.0); HEMOGLOBIN 8.6 gm/dL (14.0-18.0); MCH 23.9 pg (26.0-34.0); MCHC 32.2 g/dL (28.0-37.0); MCV 74.1 fL (80.0-100.0); MPV 6.1 fl. (7.2-11.1); RBC 3.61 mil/uL (4.50-6.00); RDW-CV 14.6 % (10.5-14.5); WBC 10.1 thou/uL (4.0-11.0)
[2018-08-22 05:45] LABS: ALBUMIN 2.1 g/dL (3.4-5.0); CALCIUM 8.4 mg/dL (8.5-10.1); CREATININE 5.6 mg/dL (0.6-1.3); MAGNESIUM 1.5 mg/dL (1.8-2.4); TOTAL BILIRUBIN 0.4 mg/dL (<0.1-1.0); TOTAL PROTEIN 6.4 g/dL (6.4-8.2)
--- NOTE | 2018-08-22 07:19 | NUR ---
MAG 1.5 IN AM AND K 3.0 IN AM, PROVIDER NOTIFED K ORDER, TOLD TO NOT TO DO ANYTHING WITH MAG LEVEL AT THIS TIME. PT REPORTS PAIN MANAGEMENT CURRENTLY NOT WORKING. SEE MAR. SEE MAR. FALL PRECAUTIONS IN PLACE. HOURLY ROUNDING FOR SAFETY.
[2018-08-22 09:00] VITALS: BP 187/92
--- NOTE | 2018-08-22 11:30 | NUR ---
CONTINUE TO FOLLOW. MET WITH PT AND . PT STILL C/O OF PAIN. STATING THEY TALKED WITH DR GOTTLIEB AM. UPDATED BY RN. WILL FOLLOW
--- NOTE | 2018-08-22 11:52 | CON ---
[address] [address] CONSULTATION Name: PASCUAL REED Room: [address] IN M.R.#: [id number] Admission: 08/13/18 Attend Phys: Philip Guillory MD Discharge: Date of : 50 Report #: [id number] THIS REPORT FOR: //name// CC: Philip Bernstein DATE OF SERVICE: 08/18/2018 HISTORY OF PRESENT ILLNESS: This is a pleasant 67-year-old gentleman with a past medical history significant for kidney stones, apparent Crohn's disease, cholecystectomy and peripheral neuropathy and CKD, who presented for evaluation of acute onset of abdominal pain. The patient reports that he had one episode of pancreatitis in the remote past and reports acute onset abdominal pain. The pain is located predominantly in the epigastric region. It is nonradiating, localized, associated with nausea, vomiting. The patient denies any systemic complaints such as fevers, chills, weight loss and denies any hematemesis or hematochezia. The patient reports that he was diagnosed with Crohn's disease in the remote past and had two segments of bowel resected. He, however, currently is not on any Crohn's medications. PAST MEDICAL HISTORY: As mentioned above. The patient has a past medical history significant for possible Crohn's disease, CKD, kidney stones, hypertension. PAST SURGICAL HISTORY: The patient has a history of cholecystectomy, left metatarsal amputation. FAMILY HISTORY: There is no family history of pancreatic or colonic malignancy. SOCIAL HISTORY: The patient denies smoking, alcohol or recreational drug use. REVIEW OF SYSTEMS: Negative except for what was mentioned in HPI. PHYSICAL EXAMINATION: VITAL SIGNS: Temperature 36.4, pulse rate 89, respirations 17, blood pressure 170/83. GENERAL: The patient is alert, awake, oriented times 3. HEENT: Pupils are equal, round, reactive to light and accommodation. Mucous membranes are moist. NECK: There is no congestion. LUNGS: Clear to auscultation bilaterally. CARDIOVASCULAR: Rate and rhythm regular. S1, S2 present. ABDOMEN: Soft. There is mild tenderness to palpation in the epigastric and right upper quadrant region. No [place] [address] CONSULTATION Name: PASCUAL REED Room: [address] IN [facility].#: [id number] Admission: 08/13/18 Attend Phys: Philip Guillory MD Discharge: Date of : 50 Report #: [id number] EXTREMITIES: Warm, well perfused. There is no edema. LABORATORY DATA: Hemoglobin 8.2, hematocrit 23.7, platelet count 25.3, WBC count 409. The patient's bilirubin has been 0.3. AST and ALT unremarkable. Lipase initially on presentation was 2136, had increased to 8023. IMAGING: CT abdomen and pelvis performed during admission demonstrated unremarkable spleen, pancreas and adrenal gland and several renal cysts. ASSESSMENT AND PLAN: A pleasant 67-year-old gentleman with past medical history significant for pancreatitis, presenting with abdominal pain and elevated lipase. Although the CT appears to be normal, with pain and elevated lipase, the patient does meet criteria for acute pancreatitis. The patient initially had some resolution of pain, but then this became more severe 5-6 days after admission. This usually indicates worsening pancreatic necrosis. I would recommend getting an MRI and MRCP to evaluate this further. The patient is developing acute walled-off necrosis or peripancreatic fluid collection. EUS-guided fluid drainage can be considered at some point. The patient was seen and examined on 08/18/2018. <ELECTRONICALLY SIGNED> By: Felix Moctezuma MD 08/22/18 1152 [id number] [id number] Moctezuma MD /nt
[2018-08-22 12:06] VITALS: BP 184/76
[2018-08-22 16:00] VITALS: BP 182/90
[2018-08-22 19:50] VITALS: BP 168/90
--- NOTE | 2018-08-22 19:52 | NUR ---
I ASSUMED CARE OF THE PATIENT AT 0700. HE IS ALERT AND ORIENTED X4 AND IS UP WITH STAND BY ASSIST. BED IS IN THE LOW LOCKED POSITION AND CALL LIGHT IS IN REACH. HOURLY ROUNDING IS COMPLETED AND PATIENT NEEDS ARE MET. PAIN IS PARTIALLY MANAGED WITH PRN MEDS. IS AT THE BEDSIDE. MASTERSON CATH WAS LEAKING, SO I REPLACED IT WITH AN 18G. DRESSING ON FEET IS C/D/I AND WAS CHANGED YESTERDAY. LABS WERE MESSAGED TO PHYSICIAN. MRCP WAS COMPLETED. PATIENT HAS REQUESTED DR CUEVA TO BE ON THEIR SERVICE (JUST BECAUSE HE WAS WHO STARTED THEIR CARE). HE HAD AN INCONT EPISODE. PATIENT IS NPO EXCEPT MEDS. HE IS SR TO ST ON THE MONITOR. WILL CONTINUE TO MONITOR.
[2018-08-23] VITALS: BP 182/86
[2018-08-23 04:00] VITALS: BP 173/83
--- NOTE | 2018-08-23 04:06 | NUR ---
RECIEVED REPORT AND ASSUMED CARE AT 1900. BP SLIGHTLY ELEVATED, OTHER THAN THAT VITAL SIGNS STABLE. DIESEL ENGINE ENGINEER IN PLACE. PT HAS PAIN AND PRN PAIN MEDS GIVEN ORDERED. ASSESSMENT COMPLETED DISCUSSED PLAN OF CARE AND PT UNDERSTANDS. PT REQUESTED SLEEPING MEDS EARLY THIS AM AND PRN SLEEPING MEDS GIVEN ORDERED. PT STILL UP AND DOWN ALL NIGHT AND MORNING ASKING FOR PAIN MEDS. BED LOCKED AND CALL LIGHT WITHIN REACH. FALL PRECAUTIONS IN PLACE. HOURLY ROUNDING DONE AND ALL NEEDS MET. NURSING WILL CONTINUE TO MONITOR.
[2018-08-23 05:30] LABS: HEMOGLOBIN 8.7 gm/dL (14.0-18.0); MCH 24.1 pg (26.0-34.0); MCHC 32.3 g/dL (28.0-37.0); MCV 74.5 fL (80.0-100.0); MPV 6.3 fl. (7.2-11.1); RBC 3.62 mil/uL (4.50-6.00); RDW-CV 15.1 % (10.5-14.5); WBC 9.9 thou/uL (4.0-11.0)
[2018-08-23 05:55] LABS: ALBUMIN 2.2 g/dL (3.4-5.0); CALCIUM 8.6 mg/dL (8.5-10.1); CREATININE 5.8 mg/dL (0.6-1.3); TOTAL BILIRUBIN 0.4 mg/dL (<0.1-1.0); TOTAL PROTEIN 6.6 g/dL (6.4-8.2)
[2018-08-23 06:01] LABS: POTASSIUM 2.9 mmol/L (3.5-5.1)
[2018-08-23 08:00] VITALS: BP 196/102
--- NOTE | 2018-08-23 11:24 | NUR ---
ASSUMED PT CARE REPORT RECEIVED FROM NURSE. PT IS AOX4 SR ON THE CISCO CONSULTANT. ON RA AND SATURATION IS 96% . PT COMPLAINS OF PAIN IN THE ABDOMEN. PAIN LEVEL 10. OXYCODONE AND FENTANYL GIVEN THIS AM. PT IS SAYS NO RELIEF. MASTERSON CATHETER WAS CLOGGED WITH BLOOD CLOTS. MASTERSON UNCLOGGED BY THIS NURSE. WILL CONTINUE TO MONITOR PROPER MASTERSON FUNCTION. URINE IN RED IN COLOR. I&O MONITORING. K REPLACEMENT GIVEN ORDERED. SECOND DOSE GIVEN BY THIS NURSE. WILL RECHECK LEVEL AT 1400 TODAY. NEW ORDERS RECEIVED FROM TURNING SANDER OPERATOR. SEE CHART. PT IS TO HAVE A RENAL BIOPSY IN THE AM. NPO STATUS MAINTAINED. PT DIET ORDERED TO CLEAR LIQUID TODAY. HOLDING HEPARIN FOR TONIGHT AND TOMORROW MORNING . ORDER IN DICTATED BY TURNING SANDER OPERATOR. SEE CHART. SBP 196. BP PILLS GIVEN ORDERED. PT MADE COMFORTABLE IN BED. WILL CONTINUE TO MONITOR
[2018-08-23 12:57] VITALS: BP 199/93
--- NOTE | 2018-08-23 13:42 | NUR ---
PT REFUSES THE GI + SMALL BOWEL TESTING. NURSE TRIES TO CONVINCE PT. PT SAYS HE HAD THAT TEST DONE BEFORE AND HE CANNOT DRINK THE SOLUTION. MADE AWARE
--- NOTE | 2018-08-23 14:52 | NUR ---
K LEVEL 3.9 AFTER REPLACEMENT HAS BEEN GIVEN THIS AM
--- NOTE | 2018-08-23 14:59 | NUR ---
WOUND CARE NOTE: CONSULT FOR R AND L FOOT WOUNDS PT HAS WOUNDS TO BILAT FEET. HE STATES HE HAS BEEN GOING TO WOUND CLINIC FOR YEARS. HIS STATES HE LAST WENT IN MAY AND GOES NEEDED. SHE ASSISTS THE PT AT HOME WITH WOUND DRESSINGS AND HE ALSO HAS HH. RIGHT FOOT HAS HEALING WOUND ON THE BALL OF THE FOOT. IT IS FULL THICKNESS MEASURING 0.2X0.4X0.2. WOUND BED PINK HEALING. THERE IS NO DRAINAGE NOTED, PT STATES "IT DOES DRAIN SOMETIMES". JEFFERY WOUND IS CALLOUSED AND DRY. RIGHT LATERAL SIDE OF 5TH METATARSAL IS RED, BLANCHES, NOT OPEN. PTS STATES THERE HAS BEEN A OPTIFOAM ON IT TO PROTECT IT. LEFT FOOT HAS THE 1ST AND 2ND METATARSAL PREVIOUSLY AMPUTATED. THE LATERAL TOP OF THE 5TH METATARSAL IS SCABBED, UNOPEN AND BLANCHES. IT MEASURES 0.4X0.5X0.1. PTS FEET CLEASED WITH WOUND CLEASER AND PATTED DRY. OPTIFOAM AG APPLIED TO RIGHT BALL OF FOOT. RIGHT LATERAL FOOT COVERED WITH 3X3 BOARDERED FOAM AND LEFT TOP OF 5TH METATARSAL COVERED WITH OPTIFOAM AG. BILAT FEET SECURED WITH KERLIX. RECCOMEND CHANGE DRESSING Q3 DAYS AND PRN. REPOSITION TO OFFLOAD FEET FROM BED. GOOD NUTRITION FOR HEALING
--- NOTE | 2018-08-23 16:36 | NUR ---
PT HAD 12 RUNS OF V TACH. BP 175/83 PT IS ASYMPTOMATIC, O2 SATURATION 95% ON RA. PT SAYS HE WAS REACHING OVER THE BEDSIDE TABLE. HE MIGHT HAVE STRETCHED TOO MUCH. HEART MONITOR TRACING SINUS RYTHM AFTER THE V TACH EPISODE. WILL CONTINUE TO MONITOR
[2018-08-23 17:00] VITALS: BP 177/86
--- NOTE | 2018-08-23 18:42 | NUR ---
TOTAL OF 1200 OUTPUT FROM MASTERSON CATHETER. URINE COLOR IS RED.
[2018-08-23 20:00] VITALS: BP 187/96
[2018-08-24] VITALS (10 sets, daily range): BP systolic 139–191; BP diastolic 65–103
--- NOTE | 2018-08-24 04:26 | NUR ---
RECIEVED REPORT AND ASSUMED CARE AT 1900. SOUND EFFECTS PERSON IN PLACE. BP ELEVATED, PULSE TACHY, OTHER THAN THAT VITAL SIGNS STABLE. PT IS UP WITH ASSIST X 1. PT HAS PAIN IN LOWER ABD AND PRN AND ROUTINE PAIN MEDS GIVEN ORDERED. PT PREFERS IV PAIN MEDS OVER ORAL MEDS, TRIED TO EDUCATE ON TAKING ORAL MEDS FIRST THEN IV FOR BREAK THROUGH PT DID NOT LIKE THAT. PT ALSO HAD ANXIETY AND PRN ANXIETY MEDS GIVEN ORDERED. ASSESSMENT COMPLETED DISCUSSED PLAN OF CARE AND PT UNDERSTANDS. FALL PRECAUTIONS IN PLACE. HOURLY ROUNDING DONE AND ALL NEEDS MET. NURSING WILL CONTINUE TO MONITOR.
[2018-08-24 05:28] LABS: HEMATOCRIT 27.2 % (42.0-52.0); HEMOGLOBIN 8.8 gm/dL (14.0-18.0); MCH 24.3 pg (26.0-34.0); MCHC 32.5 g/dL (28.0-37.0); MCV 74.9 fL (80.0-100.0); MPV 6.9 fl. (7.2-11.1); NUCLEATED RBCS 0 /100WBC; PLATELET COUNT* 218 thou/uL (150-400); RBC 3.64 mil/uL (4.50-6.00); RDW-CV 15.4 % (10.5-14.5); WBC 11.7 thou/uL (4.0-11.0)
[2018-08-24 05:31] LABS: PREALBUMIN 16.6 mg/dL (18.0-35.7)
[2018-08-24 05:53] LABS: ALBUMIN 2.1 g/dL (3.4-5.0); CALCIUM 8.5 mg/dL (8.5-10.1); CREATININE 5.8 mg/dL (0.6-1.3); TOTAL BILIRUBIN 0.4 mg/dL (<0.1-1.0); TOTAL PROTEIN 6.5 g/dL (6.4-8.2)
[2018-08-24 05:56] LABS: ABSOLUTE LYMPHOCYTES 0.7 thou/uL (0.8-5.3); ABSOLUTE MONOCYTES 0.2 thou/uL (0.0-1.2); ABSOLUTE NEUTROPHILS 10.8 thou/uL (1.6-8.1); ANISOCYTOSIS 1+; PLATELET ESTIMATE ADEQUATE; POIKILOCYTOSIS 1+
[2018-08-24 06:19] LABS: AMYLASE 1098 U/L (25-115)
[2018-08-24 06:36] LABS: LIPASE 5200 U/L (73-393)
[2018-08-24 13:32] LABS: HEMATOCRIT 25.3 % (42.0-52.0); HEMOGLOBIN 8.4 gm/dL (14.0-18.0)
[2018-08-25] VITALS (7 sets, daily range): BP systolic 130–157; BP diastolic 67–86
--- NOTE | 2018-08-25 03:17 | NUR ---
ASSUMED PT CARE AT 1930. NURSING ASSESSMENT COMPLETED AT START OF SHIFT. LATHE MECHANIC IN PLACE, TRACING SINUS RHYTHM. VSS. PT RESTLESS AND C/O ANXIETY. DR. CUEVA NOTIFIED AND NEW ORDERS RECEIVED FOR XANAX-SEE EMAR FOR DOCUMENTATION. AT 2139, PT C/O STILL FEELING ANXIOUS AND REQUESTING SLEEP AID. DR. CUEVA NOTIFIED AND NEW ORDER RECEIVED. AMBIEN ADMINISTERED AT 2221. DURING REASSESSMENT AT 2319, PT ASLEEP. SECOND DOSE OF AMBIEN HELD. AT 314, PT ANGRY, HEARD CURSING, STATING HE HAS NOT SLEPT ALL NIGHT. PT REASSURED THAT PT HAD BEEN OBSERVED SLEEPING DURING REASSESSMENT AND AT THIS HOUR, UNABLE TO ADMINISTER A SLEEP AID. ATTEMPTED TO PROVIDE ALTERNATIVE MEASURES SUCH DARK, QUIET ENVIRONEMENT. ALSO EDUCATED PT ON S/E OF NARCOTICS AND NEED FOR FURTHER EVALUATION BY IM AM FOR PT'S C/O SOA. O2 SAT 97% RA. 2L O2 NC AT BEDSIDE FOR COMFORT.
--- NOTE | 2018-08-25 07:36 | NUR ---
ASSUMED PT CARE AT 1930. NURSING ASSESSMENT COMPLETED AT START OF SHIFT. PT C/O PAIN THROUGHOUT SHIFT, PRN/SCHEDULED PAIN MEDICATIONS ADMINISTERED WITH MINIMAL RELIEF. SEE EMAR FOR DOCUMENTATION. PT STATES ABDOMINAL PAIN GETS WORSE WITH DRINKING FLUIDS/EATING. CALL LIGHT WITHIN REACH. IV FLUIDS INFUSING. SR WITH PACS ON FINISHER OPERATOR.
[2018-08-25 08:33] LABS: CREATININE 5.6 mg/dL (0.6-1.3)
[2018-08-25 08:42] LABS: POTASSIUM 2.8 mmol/L (3.5-5.1)
--- NOTE | 2018-08-25 19:52 | NUR ---
RECEIVED REPORT. ASSUMED CARE OF PT AROUND 0730. PT A&O X4. VSS. ROTOPRINTER IN PLACE TRACING SR TO ST WITH NO CHANGE THIS SHIFT. AM ASSESSMENT AND VITALS COMPLETED CHARTED. PT TOLERATING CLEAR LIQUID DIET, BUT APPETITE IS POOR. PT REFUSED ABDOMEN CT SCAN THIS SHIFT - GI AWARE. FOELY CATHETER REMOVED - SEE ORDERS. PT WAS INCONTINENT OF STOOL THIS AFTERNOON. AT BEDSIDE THROUGHOUT SHIFT. PT REPORTED ABDOMINAL PAIN THIS SHIFT THAT WAS MANAGED WITH PO AND IV PAIN MEDICATION WITH PARTIAL RELIEF. PRN MEDICATION FOR BLADDER SPASMS GIVEN. PT CURRENTLY RESTING IN BED. CALL LIGHT IS WITHIN REACH. HOURLY ROUNDING PERFORMED. FALL PRECAUTIONS IN PLACE.
[2018-08-26 04:00] VITALS: BP 152/66
[2018-08-26 05:14] LABS: ABSOLUTE EOSINOPHILS 0.2 thou/uL (0.0-0.7); ABSOLUTE LYMPHOCYTES 0.9 thou/uL (0.8-5.3); ABSOLUTE MONOCYTES 0.5 thou/uL (0.0-1.2); ABSOLUTE NEUTROPHILS 6.8 thou/uL (1.6-8.1); BASOPHILS 0.5 %; EOSINOPHILS 2.3 %; HEMATOCRIT 25.8 % (42.0-52.0); HEMOGLOBIN 8.6 gm/dL (14.0-18.0); LYMPHOCYTES 10.9 %; MCH 24.5 pg (26.0-34.0); MCHC 33.4 g/dL (28.0-37.0); MCV 73.3 fL (80.0-100.0); MONOCYTES 6.1 %; MPV 7.3 fl. (7.2-11.1); NUCLEATED RBCS 0 /100WBC; PLATELET COUNT* 183 thou/uL (150-400); POLYS 80.2 %; RBC 3.51 mil/uL (4.50-6.00); RDW-CV 15.1 % (10.5-14.5); WBC 8.5 thou/uL (4.0-11.0)
--- NOTE | 2018-08-26 05:17 | NUR ---
ASSUMED PT CARE AT 1930. NURSING ASSESSMENT COMPLETED AT START OF SHIFT. PT SR/ST ON SURVEILLANCE CAMERA TECHNICIAN. PT C/O ABDOMINAL PAIN THROUGHOUT SHIFT, SEE EMAR FOR DOCUMENTATION. HOURLY ROUNDING COMPLETED. CALL LIGHT WITHIN REACH. POST VOID RESIDUAL LESS THAN 200 ML THIS SHIFT.
[2018-08-26 05:23] LABS: CALCIUM 8.1 mg/dL (8.5-10.1); CREATININE 5.4 mg/dL (0.6-1.3); TOTAL BILIRUBIN 0.4 mg/dL (<0.1-1.0)
[2018-08-26 05:54] LABS: POTASSIUM 2.7 mmol/L (3.5-5.1)
[2018-08-26 07:30] VITALS: BP 162/90
--- NOTE | 2018-08-26 10:14 | NUR ---
CONTINUE TO FOLLOW, MET WITH PT AND . PT LOOKS IMPROVED TODAY, STATES STILL WEAK AND PAINFUL BUT BETTER. ENC. DIET AND ACTIVITY DR CUEVA HAD ALSO. PT STATED HE'D 'BEEN THRU THIS BEFORE AND I KNOW MY BODY.' SUPPORT AND ENCOURAGEMENT GIVEN.
--- NOTE | 2018-08-26 11:27 | NUR ---
Nutrition: reassessment. Pt is tolerating CLD, but poor appetite. RD will order Ensure Clear. No N/V. Per progress note, pancreatitis is improving, as well as renal FXN. Foot ulcers are healed, Crohns is stable. Watery BM. Wt is stable, 164#. Albumin 2, prealbumin 16.5, BG 118. Continue Mild risk. Continue encouraging po intake. Will follow up again 08/31/18.
[2018-08-26 11:54] VITALS: BP 148/75
[2018-08-26 15:38] VITALS: BP 151/83
[2018-08-26 19:35] VITALS: BP 152/68
[2018-08-26 23:56] VITALS: BP 121/51
[2018-08-27 04:00] VITALS: BP 143/67
[2018-08-27 05:39] LABS: CALCIUM 7.6 mg/dL (8.5-10.1); CREATININE 5.1 mg/dL (0.6-1.3); POTASSIUM 3.5 mmol/L (3.5-5.1)
--- NOTE | 2018-08-27 06:30 | NUR ---
PATIENT NOT PROGRESSING TOWARDS GOALS OF PAIN MANAGEMENT: PATIENT REMAINS 7/10 DESPITE FREQUENT PAIN MEDICATIONS AND RELAXATION TECHNIQUES. VSS ON ROOM AIR. URINE REMAINS BLOOD TINGED WITH SMALL BLOOD CLOTS, BUT NO ISSUES WITH VOIDING. ADEQUATE OUTPUT NOTED. CALL LIGHT WITHIN REACH
[2018-08-27 08:00] VITALS: BP 163/81
[2018-08-27 10:41] VITALS: BP 163/81
[2018-08-27 12:11] VITALS: BP 156/77
--- NOTE | 2018-08-27 15:00 | NUR ---
VSS, ASSUMED CARE IN THE AM, ASSESSMENT PERFORMED AND CHARTED, FALL PRECAUTIONS IN PLACE AND CALL LIGHT IN REACH, PT IS A&O4 AND UP STAND BY, PT STATES PAIN IN BACK, PT IS TRACING SR ON THE MONITOR, PT IS ON RA, HIS GOAL IS TO SIT UP IN CAHIR AND WORK WITH PT/OT, AT THIS TIME PT HAS COMPLETED GOAL AND HOURLY ROUNDS COMPLETED, WILL FOLLOW WITH PLAN OF CARE.
[2018-08-27 16:20] VITALS: BP 142/75; BP 156/77
[2018-08-27 19:50] VITALS: BP 147/80
[2018-08-28] VITALS: BP 121/64
[2018-08-28 04:00] VITALS: BP 160/80
[2018-08-28 04:50] LABS: ABSOLUTE BASOPHILS 0.1 thou/uL (0.0-0.2); ABSOLUTE EOSINOPHILS 0.3 thou/uL (0.0-0.7); ABSOLUTE MONOCYTES 0.7 thou/uL (0.0-1.2); ABSOLUTE NEUTROPHILS 6.1 thou/uL (1.6-8.1); BASOPHILS 0.8 %; EOSINOPHILS 3.5 %; HEMATOCRIT 23.3 % (42.0-52.0); HEMOGLOBIN 7.7 gm/dL (14.0-18.0); LYMPHOCYTES 12.5 %; MCH 24.6 pg (26.0-34.0); MCHC 32.9 g/dL (28.0-37.0); MCV 74.8 fL (80.0-100.0); MONOCYTES 8.1 %; NUCLEATED RBCS 0 /100WBC; PLATELET COUNT* 208 thou/uL (150-400); POLYS 75.1 %; RBC 3.11 mil/uL (4.50-6.00); RDW-CV 15.5 % (10.5-14.5); WBC 8.2 thou/uL (4.0-11.0)
[2018-08-28 05:17] LABS: ALBUMIN 1.9 g/dL (3.4-5.0); CREATININE 4.8 mg/dL (0.6-1.3); TOTAL BILIRUBIN 0.4 mg/dL (<0.1-1.0); TOTAL PROTEIN 5.8 g/dL (6.4-8.2)
[2018-08-28 05:54] LABS: POTASSIUM 2.8 mmol/L (3.5-5.1)
--- NOTE | 2018-08-28 06:29 | NUR ---
PATIENT PARTIALLY PROGRESSING TOWARDS GOALS: ABDOMINAL PAIN PARTIALLY MANAGED WITH ORAL MEDICATION AND RELAXATION. HEADACHE RELIEVED WITH MEDICATION AND ICE PACK. PATIENT DENIES NAUSEA. POTASSIUM BEING REPLACED VIA IV DUE TO PATIENT STATING HE DOES NOT TOLERATE PO POTASSIUM WELL. DRESSINGS TO FEET CHANGED. CALL LIGHT WITHIN REACH
[2018-08-28 07:06] LABS: ESR (SEDRATE) 85 mm/hr (0-20)
[2018-08-28 08:00] VITALS: BP 159/74
[2018-08-28 10:39] VITALS: BP 159/74
[2018-08-28 12:30] LABS: HEMATOCRIT 24.6 % (42.0-52.0); HEMOGLOBIN 8.1 gm/dL (14.0-18.0)
--- NOTE | 2018-08-28 13:00 | NUR ---
VSS, ASSUMED CARE IN THE AM, ASSESSMENT PERFORMED AND CHARTED, FALL PRECAUTIONS IN PLACE AND CALL LIGHT IN REACH, PT IS A&O4 AND ON RA, TRACING SR ON THE MONITOR, PT STATES PAIN IN BACK AND ABD, HE IS UP STAND BY AND IS AT BEDSIDE, PT GOAL IS TO TAKE SHOWER, WALK THE UNIT AND SIT UP IN CHAIR, AT THIS TIME PT HAS COMPLETED GOALS AND WAS MADE M/S STATUS AND WAS MOVED UP TO 304, I GAVE REPORT TO FEED MILL SUPERVISOR AND MADE TRANSFUR. HOURLY ROUNDS COMPLETED CHART CHECKED
--- NOTE | 2018-08-28 13:26 | NUR ---
ASSUMED CARE AT 1300 FROM JOEY. PT IS SLEEPING AND HAS NO CONCERNS. PT IS MED SURG STATUS AT THIS TIME. CALL LIGHT WITHIN REACH, BED ALARM ON. WILL CONTINUE PLAN OF CARE
[2018-08-28 15:47] VITALS: BP 154/80
[2018-08-28 20:00] VITALS: BP 152/71
--- NOTE | 2018-08-29 04:55 | NUR ---
ASSUMED CARE OF PT AT 1900 PT ALERT AND ORIENTED X4 VS AND ASSESSMENT STABLE. PT HAD PAIN MEDS TWICE THEN SLEPT THROUGH THE NIGHT. WILL CONTINUE PLAN OF CARE.
[2018-08-29 04:56] LABS: ALBUMIN 1.9 g/dL (3.4-5.0); CALCIUM 8.1 mg/dL (8.5-10.1); CREATININE 4.7 mg/dL (0.6-1.3); POTASSIUM 3.4 mmol/L (3.5-5.1); TOTAL BILIRUBIN 0.2 mg/dL (<0.1-1.0); TOTAL PROTEIN 5.8 g/dL (6.4-8.2)
[2018-08-29 05:00] LABS: ABSOLUTE BASOPHILS 0.1 thou/uL (0.0-0.2); ABSOLUTE EOSINOPHILS 0.4 thou/uL (0.0-0.7); ABSOLUTE LYMPHOCYTES 1.3 thou/uL (0.8-5.3); ABSOLUTE MONOCYTES 0.8 thou/uL (0.0-1.2); ABSOLUTE NEUTROPHILS 5.5 thou/uL (1.6-8.1); BASOPHILS 0.8 %; EOSINOPHILS 4.4 %; LYMPHOCYTES 16.3 %; MCH 25.1 pg (26.0-34.0); MCHC 33.2 g/dL (28.0-37.0); MCV 75.6 fL (80.0-100.0); MONOCYTES 9.7 %; MPV 7.3 fl. (7.2-11.1); NUCLEATED RBCS 0 /100WBC; PLATELET COUNT* 244 thou/uL (150-400); POLYS 68.8 %; RBC 3.17 mil/uL (4.50-6.00); RDW-CV 15.5 % (10.5-14.5)
[2018-08-29 07:50] VITALS: BP 170/75
[2018-08-29 10:29] VITALS: BP 170/75
[2018-08-29] MEDS ORDERED: XANAX 0.25 MG0.25 MG PO (10:39)
[2018-08-29] MEDS ORDERED: OXYCONTIN20 M1 PO (10:42)
[2018-08-29] MEDS ORDERED: NIFEDIPINE20 MG PO (10:45)
--- NOTE | 2018-08-29 11:37 | NUR ---
DISCHARGE NOTE - ALL BELONGINGS SENT WITH PT. DISCHARGE INSTRUCTIONS REVIEWED WITH PT AND SPOUSE. NO QUESTIONS. IV'S REMOVED WITHOUT DIFFICULTY.
--- NOTE | 2018-09-01 10:08 | PATH ---
[address] [address] PATHOLOGY RPT PROCEDURE Name: RASTA REED Room: [address] IN M.R.#: [id number] Admission: 08/13/18 Date of : 50 Discharge: 08/29/18 Report #: [id number] Path Case #: [id number] [facility] Accession Number: [id number] . 01 Material submitted: . kidney - LEFT RENAL BIOPSY. Modifiers: left . 01 Clinical history: . Elevated creatinine . 02 Diagnosis: Special studies report received from [employer], [address] [place] [address], [place] [address], on case [id number], labeled with their number [id number], dated 08/26/2018. . Specimen submitted: By Aileen Maldonado MD For Kidney, biopsy . DIAGNOSIS: . 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 See Comment. . Comment: Sampling for light microscopy shows 11 glomeruli, 6 of which are globally sclerotic. The glomeruli display changes nodular diabetic glomerulosclerosis. Two glomeruli display cellular to fibrocellular crescents. In addition, Immunofluorescence shows C3 deposits. 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 Clinical and serological correlation is required. See table below for summary of chronicity findings: . Chronicity Summary Total Glomeruli- 19 Global Glomerulosclerosis 12 Segmental Sclerosis- Present Interstitial Fibrosis- Severe Tubular Atrophy- Severe Arterial Intimal Fibrosis- Severe Arteriolar Hyalinosis- Severe . Clinical History: The patient is a 67-year-old male presents for evaluation of kidney injury. Past medical history is significant for diabetes mellitus, hypertension. The clinical features are suspicious for sepsis and the patient recently had diabetic foot infection and pancreatitis. Patient is also having history of chronic narcotic use and Crohn's disease. Urinalysis shows 3+ protein and 3+ [place] [address] PATHOLOGY RPT PROCEDURE Name: RASTA REED Room: [address] IN [facility].#: [id number] Admission: 08/13/18 Date of : 50 Discharge: 08/29/18 Report #: [id number] Path Case #: [id number] . Gross Description: Received from [facility] via [employer] are two foreign specimen bottles; one bottle contains formalin and the other contains Mark's fixative. The bottles are labeled with the patient's name (Rasta Reed). . Received in formalin is one piece of leung tissue measuring 1.3 x 0.1 x 0.1 cm (fatty ends, bisected). One piece is submitted for electron microscopy and the remainder of the tissue is submitted in its entirety for light microscopy. . Received in Mark's fixative is one piece of tissue measuring 1.5 x 0.1 x 0.1 cm (fatty end and middle section). The specimen is submitted in its entirety for immunofluorescence microscopy. . Microscopic Description: LIGHT MICROSCOPY: . Tissue submitted for light microscopic examination is represented by approximately 95% cortex and 5% corticomedullary junction tissue. There are up to eleven glomeruli present, six of which are globally sclerotic. The glomeruli appear normal in size and exhibit mild to moderate expansion of mesangial matrix, multifocally forming nodules. The glomeruli diffusely display mildly increased mesangial cellularity and rare infiltrating leukocytes are identified. Two glomeruli display segmental to circumferential cellular to fibrocellular crescents. No overt evidence of fibrinoid necrosis is identified. The background tubules display changes of tubular injury characterized by luminal ectasia, cytoplasmic simplification, and prominent nucleoli. Focal degenerating and fresh intraluminal red blood cells are identified. There is mild interstitial edema. It is difficult to estimate the exact extent of tubular atrophy and interstitial fibrosis because of interstitial edema. However, it appears to be severe. Mild mixed interstitial inflammation is seen. Arterioles exhibit moderate to severe arteriosclerosis with hyalinosis and arteries exhibit severe intimal fibrosis. No evidence of arteritis is identified. Toluidine blue-stained sections for electron microscopy show eight glomeruli, six of which are globally sclerotic. Congo red stain for amyloid is negative. . Standard of care requirements for proper analysis of renal biopsies mandates serial sections, and PAS, Edward silver, trichrome and SMMT stains at multiple levels. PAS stains are used to evaluate various aspects of the glomerular, tubular, and vascular basement membranes. Edward silver stains are used to evaluate thickening, reduplication, "spiking" or "bubbling" of the glomerular basement membrane. Toluidine blue stained sections highlight glomerular basement membranes and demonstrates unusual types of deposits. It also reveals details of tubular epithelial cells and aids in the analysis of vascular lesions. [place] [address] PATHOLOGY RPT PROCEDURE Name: RASTA REED Room: [address] DIS IN M.R.#: [id number] Admission: 08/13/18 Date of : 50 Discharge: 08/29/18 Report #: [id number] Path Case #: [id number] used to evaluate interstitial fibrosis and basement membrane deposits. The SMMT stain helps evaluate basement membrane changes, immune deposits and tubulointerstitial scarring. Controls are routinely run on all special stains and are verified for acceptability. A review of the technical quality of routine slides is made before results are reported. . . IMMUNOFLUORESCENCE: The sections are stained for IgG, IgM, IgA, C3, C1q, albumin, fibrinogen, and kappa and lambda light chains. The tissue consists entirely of renal medulla and soft tissue. No glomeruli are present for evaluation. There is no significant staining within the medullar. Vardaman and lambda stain equally throughout the tubulointerstitium. Immunofluorescence is performed on the paraffin embedded tissue following protease digestion. Sections are stained for IgA, IgG, IgM, C3, and kappa and lambda light chains. The glomeruli show global granular deposits for C3 (2+). All other stains are negative in glomeruli. There is no significant extraglomerular staining. Vardaman and lambda stain equally throughout the tubulointerstitium including tubular casts and cytoplasmic protein resorption droplets. . Positive and negative controls are run on all immunofluorescent stains and are verified for acceptability before results are reported. Internal antigens serve as positive controls. . ELECTRON MICROSCOPY: One block is prepared. Ultrastructural evaluation of a glomerulus reveals basement membranes which are variably thickened. There is mesangial matrix expansion present with mild increase in cellularity. Though the mesangium contains ill-defined densities, no definite immune-type electron-dense deposits are present. No definitive immune-type electron-dense deposits are identified along the capillary avila. There is mild epithelial foot process effacement. The tubular basement membranes show mild thickening. . Special procedures including immunofluorescence and electron microscopy correlate with the light microscopy findings. . Note: Some of the tests reported here may have been developed and performance characteristics determined by [employer]. They have not been cleared or approved by the U.S. Food and Drug Administration (FDA). The FDA does not require this test to go through premarket FDA review. This test is used for clinical purposes. It should not be regarded as investigational or for research. [employer] is certified under the Clinical Laboratory Improvement Amendments of 1988 (CLIA) as qualified to perform high complexity clinical laboratory testing. . Physician/Physician's office called on 08/26/2018 at 3:30 [place] [address] PATHOLOGY RPT PROCEDURE Name: RASTA REED Room: [address] IN [facility].#: [id number] Admission: 08/13/18 Date of : 50 Discharge: 08/29/18 Report #: [id number] Path Case #: [id number] . *I have reviewed the clinical history, the pertinent gross findings, all microscopic materials, discussed the case with the clinician when appropriate, and have rendered the final diagnosis. . . Preliminary Diagnosis performed by Fede Savage M.D. Electronically signed 08/26/2018 5:13:01 PM . A complete copy of the report is on file. . Professional and technical services performed by [facility] at [address] [facility], [facility] [address], [place], [address]. . (AMJ 08/30/2018) . AZJ/08/30/2018 . 02 Electronically signed: . Osvaldo Head MD, Pathologist NPI- [id number] . 01 Gross description: . The specimen is received in formalin, labeled "Emy, Rasta, left renal BX", consist of a leung-white needle core. The specimen is sent to, and the final report will be submitted from, the [facility]. . Received in a vial of Sofia solution, labeled with patient name and "Emy, Rasta, left renal BX", consists of a leung-red needle core. The specimen is sent to, and the final report will be submitted from, the [facility]. ([facility]; 08/24/2018) SHS/SHS . 02 Pathologist provided ICD-10: N28.9, R94.4 . 02 CPT . 406117 Specimen Comment: A courtesy copy of this report has been sent to Specimen Comment: [phone], , , . Specimen Comment: Report sent to ,DR MALDONADO,DR LAND Specimen Comment: DR CUEVA Specimen Comment: A duplicate report has been generated due to demographic updates. Performed at: [address] [place] [address] PATHOLOGY RPT PROCEDURE Name: RASTA REED Room: [address] IN M.R.#: [id number] Admission: 08/13/18 Date of : 50 Discharge: 08/29/18 Report #: [id number] Path Case #: [id number] [address] [facility] [address], [place] [id number] MD Binu Li MD Phone: [phone] Performed at: [address] [facility] [address] [place] [id number] MD Osvaldo Head MD Phone: [phone]
== END 2018-08-29 11:37 | disposition home or self-care (01) | DRG 371 ==
LOC: M.ERS 14:22 → M.ICU 16:48 → M.TBA-ER 16:48 → M.2W 16:48 → M.ICU 19:35 → M.2W 08-14 20:50 → M.3W 08-28 12:57
PROVIDERS: Internal Medicine; Internal Medicine Gastroenterology; Internal Medicine Nephrology; Personal Emergency Response Attendant; Physician Assistant; ADMIT Internal Medicine
PROC: 0TB13ZX Excision of Left Kidney, Percutaneous Approach, Diagnostic (ICD-10-PCS; principal; 2018-08-24)
DX: A04.9 Bacterial intestinal infection, unspecified (principal); N17.0 Acute kidney failure with tubular necrosis; K85.90 Acute pancreatitis without necrosis or infection, unspecified; J96.01 Acute respiratory failure with hypoxia; G93.41 Metabolic encephalopathy; K50.90 Crohn's disease, unspecified, without complications; F11.20 Opioid dependence, uncomplicated; E87.2 Acidosis; M86.672 Other chronic osteomyelitis, left ankle and foot; M86.671 Other chronic osteomyelitis, right ankle and foot; F19.90 Other psychoactive substance use, unspecified, uncomplicated; E87.5 Hyperkalemia; I12.9 Hypertensive chronic kidney disease with stage 1 through stage 4 chronic kidney disease, or unspecified chronic kidney disease; E11.22 Type 2 diabetes mellitus with diabetic chronic kidney disease; N18.2 Chronic kidney disease, stage 2 (mild); N28.1 Cyst of kidney, acquired; G89.4 Chronic pain syndrome; E11.42 Type 2 diabetes mellitus with diabetic polyneuropathy; E11.69 Type 2 diabetes mellitus with other specified complication; R31.29 Other microscopic hematuria; N40.0 Benign prostatic hyperplasia without lower urinary tract symptoms; E11.621 Type 2 diabetes mellitus with foot ulcer; L97.519 Non-pressure chronic ulcer of other part of right foot with unspecified severity; Z79.899 Other long term (current) drug therapy; Z87.442 Personal history of urinary calculi; Z90.89 Acquired absence of other organs; Z90.49 Acquired absence of other specified parts of digestive tract; Z89.412 Acquired absence of left great toe

== ENCOUNTER 2019-08-25 12:48 | Inpatient (IN) | payer OTHER ==
[2019-08-25] VITALS (12 sets, daily range): BP systolic 133–176; BP diastolic 74–130
[~2019-08-25] VITALS: Ht 172.7 cm; Wt 78.8 kg
[~2019-08-25 12:48] MED LIST changes: +LISINOPRIL10 MG PO; +NIFEDIPINE20 MG PO; +OXYCONTIN20 M1 PO
[2019-08-25] MEDS ORDERED: FENTANYL1 EAC3 TRANSDERM (12:57)
[2019-08-25 13:11] LABS: BE -4.5 mmol/L (-2 to +3); PCO2 VENOUS 42.5 mmHg (41.0-51.0); PO2 VENOUS 36.9 mmHg (35.0-45.0)
[2019-08-25 13:13] LABS: ABSOLUTE BASOPHILS 0.1 thou/uL (0.0-0.2); ABSOLUTE EOSINOPHILS 0.1 thou/uL (0.0-0.7); ABSOLUTE LYMPHOCYTES 1.4 thou/uL (0.8-5.3); ABSOLUTE MONOCYTES 0.8 thou/uL (0.0-1.2); BASOPHILS 0.5 %; EOSINOPHILS 1.1 %; LYMPHOCYTES 11.2 %; MCH 23.1 pg (26.0-34.0); MCHC 32.4 g/dL (28.0-37.0); MCV 71.2 fL (80.0-100.0); MONOCYTES 6.6 %; MPV 8.2 fl. (7.2-11.1); NUCLEATED RBCS 0 /100WBC; PLATELET COUNT* 293 thou/uL (150-400); POLYS 80.6 %; RBC 5.62 mil/uL (4.50-6.00); RDW-CV 14.5 % (10.5-14.5); WBC 12.4 thou/uL (4.0-11.0)
[2019-08-25 13:33] LABS: CALCIUM 9.5 mg/dL (8.5-10.1); CREATININE 1.8 mg/dL (0.6-1.3); POTASSIUM 3.9 mmol/L (3.5-5.1)
[2019-08-25 13:34] LABS: ALBUMIN 2.6 g/dL (3.4-5.0); TOTAL BILIRUBIN 0.8 mg/dL (<0.1-1.0); TOTAL PROTEIN 6.8 g/dL (6.4-8.2)
[2019-08-25 13:51] LABS: PLATELET ESTIMATE ADEQUATE
[2019-08-25 13:52] LABS: ANISOCYTOSIS 1+; MICROCYTES 1+
--- NOTE | 2019-08-25 15:19 | EKG ---
[place] [address] ELECTROCARDIOGRAM REPORT Name: PASCUAL REED Room: [address] ADM IN M.R.#: [id number] Admission: 08/25/19 Attend Phys: Jasmine Canseco, Discharge: Date of : 50 Date of Service: 08/25/19 1259 Report #: [id number] THIS REPORT FOR: //name// [facility] ED Test Date: 2019-08-25 Test Time: 12:59:24 Pat Name: PASCUAL REED Department: Room: [facility] Gender: M Gleason Operator: MC : 1950 Requested By: Lizbeth Hartman Order Number: [id number] MD: Kamran Nice Measurements Intervals [place] Rate: 112 P: 42 NH: 131 QRS: 32 QRSD: 98 T: -66 QT: 322 QTc: 440 Interpretive Statements Sinus tachycardia Borderline repolarization abnormality Compared to ECG 08/13/2018 14:39:55 Sinus rate has increased Electronically Signed On 08-25-2019 15:17:07 CDT by Kamran Nice [email or web address] <ELECTRONICALLY SIGNED> By: Kamran Nice MD, [facility] 08/25/19 1517 1259 [id number] Kamran Nice MD, [facility] /EPI
[2019-08-25 15:54] LABS: CALCIUM 8.5 mg/dL (8.5-10.1); CREATININE 1.4 mg/dL (0.6-1.3); POTASSIUM 3.5 mmol/L (3.5-5.1)
[2019-08-25] MEDS ORDERED: COLACE100 MG PO (15:56)
[2019-08-25] MEDS ORDERED: VITAMIN D31250 MCG PO (15:57)
[2019-08-25] MEDS ORDERED: PEPCID40 MG PO (15:58)
[2019-08-25] MEDS ORDERED: ANTACID650 MG PO (15:59)
--- NOTE | 2019-08-25 19:43 | NUR ---
PT HAS PLACED FENTANYL PATCH FROM HOME WHEN ARRIVING TO THE ER ADDED TO THE EMAR VIA ER NURSE UPON ASSESSMENT IN ICU THIS PACKAGE LIFT OPERATOR NOTICED TWO PATCHES RLQ AND LLQ REMOVED RLQ THAT STATED WEDNESDAY PT STATED IT WAS THE NEW PATCH NOT THE OLD ONE REMOVED BOTH PATHES BECOME COMBATIVE AND AGITATED KICKING THE TRASH CAN AND YELLING PER DR OROSCO HE CAN HAVE BRING NEW PATCH IN 24 HOURS
--- NOTE | 2019-08-25 22:31 | NUR ---
PATIENT'S HEART RATE JUMPED TO 161, SINUS TACH, BRIEFLY. WHEN CHECKING ON PATIENT HE DID NOT EXERT HIMSELF AND WHEN ASKED HE REPORTS THAT HE DID NOT NOTICE HIS HEART RACING DURING THE EVENT. PATIENT CONVERTED OUT OF TACHYCARDIC RHYTHM ON HIS OWN. WCTM
[2019-08-26] VITALS (13 sets, daily range): BP systolic 132–169; BP diastolic 70–92
[2019-08-26 04:06] LABS: HEMATOCRIT 33.3 % (42.0-52.0); MCH 23.2 pg (26.0-34.0); MCV 70.1 fL (80.0-100.0); MPV 8.1 fl. (7.2-11.1); RBC 4.74 mil/uL (4.50-6.00); RDW-CV 14.5 % (10.5-14.5); WBC 6.6 thou/uL (4.0-11.0)
[2019-08-26 04:20] LABS: ALBUMIN 1.8 g/dL (3.4-5.0); CALCIUM 7.7 mg/dL (8.5-10.1); CREATININE 1.2 mg/dL (0.6-1.3); MAGNESIUM 1.7 mg/dL (1.8-2.4); POTASSIUM 3.5 mmol/L (3.5-5.1); TOTAL BILIRUBIN 0.4 mg/dL (<0.1-1.0); TOTAL PROTEIN 5.1 g/dL (6.4-8.2)
--- NOTE | 2019-08-26 07:18 | NUR ---
PATIENT AGITATED AND ANGRY WITH NURSING STAFF AT START OF SHIFT. PATIENT EVENTUALLY CALMED DOWN AFTER PAIN MEDICATION AND ANXIETY MEDICATION WERE ADMINISTERED. PATIENT'S BLOOD GLUCOSE LEVELS RETURNING TO NORMAL. AFEBRILE. PATIENT REQUESTING AND TAKING PRN PAIN MEDS REGULARLY. PATIENT EXPRESSES HIS DESIRE TO LEAVE THE HOSPITAL IN THE AM AFTER SPEAKING WITH THE DOCTOR WHEN THEY ROUND.
--- NOTE | 2019-08-26 11:00 | NUR ---
PT ASSESSMENT CHARTED. VSS. DR. OROSCO CALLED AND GOT UPDATED MED LIST AND HAS UPDATED HIS HOME MEDICATION. UA SENT. NO OTHER COMPLAINTS. REPORT GIVEN TO TELEMETRY NURSE AND SENT TO ROOM 204 VIA WHEELCHAIR.
[2019-08-26 12:03] LABS: URINE BILIRUBIN NEGATIVE (Negative); URINE BLOOD 2+ (Negative); URINE CLARITY CLEAR; URINE COLOR YELLOW; URINE GLUCOSE-RANDOM 2+ (Negative); URINE KETONES 1+ (Negative); URINE LEUKOCYTES-REFLEX NEGATIVE (Negative); URINE NITRITE-REFLEX NEGATIVE (Negative); URINE PROTEIN 3+ (Negative); URINE SPECIFIC GRAVITY 1.025 (1.005-1.030); URINE UROBILINOGEN 0.2 E.U./dl (0.2-1.0)
[2019-08-26 12:13] LABS: BACTERIA-REFLEX 1-9 Few /HPF (None Seen); FINE GRANULAR CASTS 0-3 Few /LPF (None Seen); HYALINE CASTS 4-10 Moderate /LPF (None Seen); MUCUS 0-3 Light strn/LPF (None Seen); SQUAMOUS 0-3 Few /LPF (0-3); URINE RBC 3-10 Few /HPF (0-2); URINE WBC-REFLEX 0-5 Rare /HPF (0-5)
[2019-08-26 12:14] LABS: CRYSTALS None Seen /LPF (None Seen)
--- NOTE | 2019-08-26 15:46 | NUR ---
RECEIVED PATIENT FROM BRAD CRISOSTOMO. ALL QUESTIONS ANSWERED. PATIENT ORIENTED TO ROOM, AGREE WITH PREVIOUS BULL FIDDLE PLAYER. PATIENT RESTING IN BED AT THIS TIME. BED IN LOWEST POSITION, CALL LIGHT IN REACH, CARDIAC MONTIOR IN PLACE.
[2019-08-27] VITALS (7 sets, daily range): BP systolic 136–183; BP diastolic 69–91
--- NOTE | 2019-08-27 03:46 | NUR ---
ASSUMED CARE OF PT AFTER REPORT AT 1930. PT A&OX. VSS. PHYSICAL ASSESSMENT COMPLETED AND CHARTED. PT ON RA. PT TRACING SR/PAC ON TELE. PT UPADLIB TO RESTROOM. PT COMPLAINED OF GENERALIZED BODY PAIN-MED GIVEN PER JUN. PT ABLE TO SLEEP WELL ON BED. CALL LIGHT WITHIN REACH.
[2019-08-27 04:36] LABS: MAGNESIUM 1.8 mg/dL (1.8-2.4)
[2019-08-27 08:32] LABS: CALCIUM 7.6 mg/dL (8.5-10.1); CREATININE 1.2 mg/dL (0.6-1.3); POTASSIUM 3.6 mmol/L (3.5-5.1)
--- NOTE | 2019-08-27 17:42 | NUR ---
PATIENT PROGRESSING WELL TOWARDS GOALS. SUGARS THIS EVENING ARE STAYING LOWER. PATIENT ATE ALL MEALS, RESTING IN BED, PAIN SOMEWHAT CONTROLLED THIS SHIFT. NO NAUSEA OR VOMITTING AT THIS TIME. PATIENT HOPING TO GO HOME TOMORROW. BED IN LOWEST POSITON, CALL LIGHT IN REACH. MINE DEPUTY IN PLACE.
[2019-08-28] VITALS: BP 168/96
[2019-08-28 04:00] VITALS: BP 121/67
--- NOTE | 2019-08-28 04:29 | NUR ---
ASSUMED CARE OF PT AFTER REPORT AT 1930. PT A&OX4. VSS. PHYSICAL ASSESSMENR COMPLETED AND CHARTED. PT ON RA. PT TRACING SR/PVC ON TELE. PT UPADLIB TO RESTROOM. PT COMPLAINED OF BACK PAIN-MED GIVEN PER JUN. PT ABLE TO SLEEP WELL ON BED. CALL LIGHT WITHIN REACH.
[2019-08-28 04:40] LABS: HEMATOCRIT 31.3 % (42.0-52.0); HEMOGLOBIN 10.6 gm/dL (14.0-18.0); MCH 23.4 pg (26.0-34.0); MCHC 33.7 g/dL (28.0-37.0); MCV 69.4 fL (80.0-100.0); MPV 7.8 fl. (7.2-11.1); RBC 4.52 mil/uL (4.50-6.00); RDW-CV 15.3 % (10.5-14.5); WBC 5.8 thou/uL (4.0-11.0)
[2019-08-28 05:43] LABS: ALBUMIN 1.8 g/dL (3.4-5.0); CALCIUM 7.7 mg/dL (8.5-10.1); CREATININE 1.2 mg/dL (0.6-1.3); MAGNESIUM 1.8 mg/dL (1.8-2.4); POTASSIUM 3.5 mmol/L (3.5-5.1); TOTAL BILIRUBIN 0.3 mg/dL (<0.1-1.0); TOTAL PROTEIN 5.3 g/dL (6.4-8.2)
[2019-08-28 07:25] VITALS: BP 158/85
[2019-08-28 11:31] VITALS: BP 152/87
[2019-08-28] MEDS ORDERED: GLUCOPHAGE500 MG PO (12:21)
[2019-08-28] MEDS ORDERED: GLUCOTROL XL2.5 MG PO (12:21)
[2019-08-28] MEDS ORDERED: PROCARDIA XL30 MG PO (12:21)
[2019-08-28] MEDS ORDERED: NEURONTIN 300M300 M2 PO (12:21)
[2019-08-28] MEDS ORDERED: HYDROXYZINE HCL25 M2 PO (12:21)
[2019-08-28] MEDS ORDERED: SUPER ENZYME C1 EACH PO (12:22)
[2019-08-28 12:48] VITALS: BP 152/87
--- NOTE | 2019-08-28 14:06 | NUR ---
GI WILL NOT SEE PATIENT DUE TO PATIENT BEING DISCHARGED FROM [facility] AWHILE AGO. DOES NOT RECOMMEND ANYTHING AT THIS TIME. INSTRUCTED TO FOLLOW UP WITH OWN GI DOCTOR.
[2019-08-28] MEDS ORDERED: XANAX 0.25 MG0.25 MG PO (14:15)
[2019-08-28 14:17] VITALS: BP 152/87
--- NOTE | 2019-08-28 14:58 | NUR ---
D/C INSTRUCTIONS GIVEN TO PATIENT. ASKED PATIENT MULTIPLE TIMES IF HE UNDERSTOOD D/C INSTRUCTIONS, SHOOK HIS HEAD YES BUT STARED OFF INTO SPACE AND THEN STATED HIS HANDLES ALL THAT. ALL BELONGINGS BAGGED UP, MEDICATIONS CAME FROM [facility] AND GIVEN BACK TO PATIENT. PATIENT TAKEN BY WHEELCHAIR TO CAR WITH .
[2019-08-28] MEDS ORDERED: CREON DR 6,0001 EACH PO (15:52)
[2019-08-29 02:07] LABS: ESTIMATED AVERAGE GLUCOSE > 398 mg/dL (()); GLYCOHEMOGLOBIN (HGB A1C) > 15.5 % (4.8-5.6)
== END 2019-08-28 15:00 | disposition home or self-care (01) | DRG 637 ==
LOC: M.ERS 12:48 → M.2W 13:47 → M.ICU 13:47 → M.TBA-ER 13:47 → M.ICU 14:45 → M.2W 08-26 10:57
PROVIDERS: Family Medicine; Physician Assistant; ADMIT Internal Medicine
DX: E11.00 Type 2 diabetes mellitus with hyperosmolarity without nonketotic hyperglycemic-hyperosmolar coma (NKHHC) (principal); K85.90 Acute pancreatitis without necrosis or infection, unspecified; N17.9 Acute kidney failure, unspecified; E87.1 Hypo-osmolality and hyponatremia; E44.0 Moderate protein-calorie malnutrition; G89.29 Other chronic pain; E11.65 Type 2 diabetes mellitus with hyperglycemia; M54.9 Dorsalgia, unspecified; N18.3 Chronic kidney disease, stage 3 (moderate); I12.9 Hypertensive chronic kidney disease with stage 1 through stage 4 chronic kidney disease, or unspecified chronic kidney disease; E11.22 Type 2 diabetes mellitus with diabetic chronic kidney disease; E11.40 Type 2 diabetes mellitus with diabetic neuropathy, unspecified; Z79.4 Long term (current) use of insulin; Z87.442 Personal history of urinary calculi; Z90.49 Acquired absence of other specified parts of digestive tract; Z89.412 Acquired absence of left great toe; Z89.432 Acquired absence of left foot; Z79.899 Other long term (current) drug therapy; Z68.26 Body mass index [BMI] 26.0-26.9, adult